=== PATIENT | female | born 1945 | race Caucasian/White ===

== ENCOUNTER 2017-07-20 08:22 | Inpatient (IN) | payer MEDICARE, MEDICAID ==
[2017-07-20 10:03] LABS: #Eosinphils 0.1 thou/uL (0.0-0.7); #Lymphocytes 0.9 thou/uL (1.20-3.40); #Monocytes 1.2 thou/uL (0.11-0.59); #Neutrophils 17.2 thou/uL (1.40-6.50); %Basophils 0.1 % (0.0-1.0); %Eosinophils 0.4 % (0.0-10.0); %Lymphocytes 4.8 % (21.0-51.0); %Monocytes 6.3 % (0.0-10.0); Hematocrit 36.1 % (36.0-47.0); Mean Platelet Volume 8.3 fL (7.4-10.4); Red Blood Cell (RBC) Count 3.86 mill/uL (4.20-5.40); White Blood Cell (WBC) Count 19.5 thou/uL (4.8-10.8)
[2017-07-20 10:25] LABS: Lactic Acid - Sepsis 2.1 mmol/L (0.5-2.2)
[2017-07-20 10:28] LABS: ALT (SGPT) 22 U/L (8-55); AST (SGOT) 20 U/L (5-34); Alkaline Phosphatase 123 U/L (40-150); Anion Gap 17 mmol/L (10-20); BUN (Urea Nitrogen) 34 mg/dL (9.8-20.1); Bilirubin, Total 0.3 mg/dL (0.2-1.2); CK (CPK) 59 U/L (29-168); Calc. Creatinine Clearance 0 mL/min (70-130); Calcium 8.8 mg/dL (7.8-10.44); Carbon Dioxide 25 mmol/L (23-31); Chloride 101 mmol/L (98-107); Estimated GFR-MDRD 28; Globulin 3.7 g/dL (2.4-3.5); Lipase 42 U/L (8-78); Protein, Total 7.6 g/dL (6.0-8.3)
--- NOTE | 2017-07-20 10:31 | CT ---
CT HEAD WITHOUT IV CONTRAST: DATE: 07/20/17. HISTORY: Twitching behavior. The patient has seizure-type behaviors. The patient fell in bathroom 2 days ag o. Generalized weakness. COMPARISON: 04/10/15. FINDINGS: Again noted are mild chronic small-vessel ischemic changes as well as cerebral volume loss. There i s a remote lacunar infarction again seen within the lateral aspect of each putamen near the external capsules bilaterally. There is no evidence of an acute cortical infarction, hemorrhage, mass effec t, or midline shift. Ventricular system is normal in size, shape, and position for the degree of hancock lcal atrophy. A mucous retention cyst is present in the right maxillary antrum. There is mucosal thickening in a few right ethmoidal air cells. The mastoid air cells are clear. No other interval change. IMPRESSION: 1. No acute intracranial abnormalities demonstrated. 2. Mild chronic small-vessel ischemic changes and cerebral volume loss. 3. Remote lacunar infarctions each basal ganglia. POS: [facility]
[2017-07-20 10:33] LABS: Troponin I Less than 0.010 ng/mL (< 0.028)
--- NOTE | 2017-07-20 10:48 | RAD ---
PORTABLE CHEST: Date: )07/20/17 HISTORY: Respiratory distress. COMPARISON: None. FINDINGS: Heart size appears slightly enlarged. There is an infiltrative appearing process along the left hear t border, probably lingular infiltrate. The right lung appears clear. There are chronic lung changes seen. IMPRESSION: 1. Left lung infiltrate. This is probably within the lingula. A lateral film would be helpful in as sessment. 2. Mild cardiomegaly. POS: [facility]
--- NOTE | 2017-07-20 10:48 | RAD ---
TWO VIEWS LEFT FOREARM: DATE: 07/20/17. HISTORY: The patient fell in bathroom 2 days ago and has skin tears to the left forearm. FINDINGS: There is minimal subcutaneous soft tissue irregularity seen at the lateral aspect of the mid forearm which may be related to a laceration in this region. No radiopaque foreign body is seen. No fract ure or dislocation is visualized. There is osteoarthritis involving the 1st carpometacarpal joint. IMPRESSION: 1. No acute fracture visualized involving the left forearm. 2. Minimal soft tissue irregularity and soft tissue swelling lateral aspect mid forearm which may b e related to laceration and associated soft tissue swelling. POS: [facility]
[2017-07-20 11:01] LABS: Bilirubin Negative (Negative); Blood, Urine Large (Negative); Glucose, Urine (Dipstick) Negative (Negative); Ketone, Urine Negative (Negative); Nitrite Positive (Negative); Protein, Urine (Dipstick) Negative (Neg-Trace); Urobilinogen 0.2 mg/dL (0.2-1.0)
[2017-07-20 11:10] LABS: Bacteria/HPF 3+ HPF (None Seen); Hyaline Casts/LPF NONE SEEN LPF (0-3 Hyaline); RBC/HPF 0-3 HPF (0-3); Squamous Epithelial 0-3 HPF (0-3); WBC/HPF None Seen HPF (0-3)
[2017-07-20] MEDS ORDERED: cefTRIAXone\\ROCEPHIN 1 GM VIAL ONE (11:36)
[2017-07-20] MEDS ORDERED: Piperacillin/Tazobactam 3.375 GM in Sodium Chloride 0.9% 100 ML IVPB SCH (11:45)
[2017-07-20] MEDS ORDERED: Acetaminophen 500 MG TAB ONE (12:48)
[2017-07-20 12:58] LABS: Troponin I Less than 0.010 ng/mL (< 0.028)
--- NOTE | 2017-07-20 12:58 | CT ---
CT OF ABDOMEN AND PELVIS PERFORMED WITHOUT CONTRAST ENHANCEMENT: Date: 07/20/17 HISTORY: Patient reports a fall in the bathroom 2 days ago. Generalized weakness. COMPARISON: CT of the chest performed 12/22/15. FINDINGS: There is a partially visualized lingular infiltrate seen. There is also some very minimal parenchyma l change in the right middle lobe. The liver shows no focal abnormalities. The gallbladder is mildly distended, but no pericholecystic inflammatory change. Splenosis of the spleen is again demonstrated. The pancreas region is unremarka ble. Right and left adrenal glands are normal in appearance. There is an exophytic hypodensity involving the mid to upper pole region of the left kidney, most likely a small cyst. No renal calculi are demo nstrated. There is no significant periaortic or mesenteric adenopathy. No signs of bowel obstruction . Some minimal diverticulosis noted. CT of pelvis was performed without contrast enhancement. Postoperative changes in the groin region a re noted. On the right side, there is what appears to be a partially visualized right fem-pop graft. The bladder is markedly distended. There is some air in the bladder, presumably related to catheter ization. No adenopathy or mass. Appendix is unremarkable. No periappendiceal inflammatory change. IMPRESSION: 1. Lingular infiltrate, also some minimal parenchymal change of the right middle lobe. 2. Distended bladder. 3. No acute abnormalities of the abdomen or pelvis. POS: [facility]
[2017-07-20] MEDS ORDERED: Dextrose 50% Abboject 50 ML SYRINGE SLOW IVP PRN (13:58)
[2017-07-20] MEDS ORDERED: Dextrose 5% in Water 1,000 ML IV PRN (13:58)
[2017-07-20] MEDS ORDERED: Ondansetron HCl/PF 4 MG/2 ML Vial IVP PRN (14:24)
[2017-07-20] MEDS ORDERED: Ondansetron ODT 4 MG TAB PO PRN (14:25)
[2017-07-20] MEDS ORDERED: Pregabalin 75 MG CAP PO SCH (15:00)
[2017-07-20] MEDS: Sodium Chloride 0.9% 1,000 ML IV SCH ×2 (15:10→17:14)
[2017-07-20] MEDS: Azithromycin 500 MG in Sodium Chloride 0.9% 250 ML 250 ML IVPB SCH (15:10)
--- NOTE | 2017-07-20 15:30 | HP-2 ---
CODE STATUS: FULL. PRIMARY CARE PHYSICIAN: Dr. Page at [facility] ATTENDING PHYSICIAN: Dr. Sundar Gonzalez. PGY1: Laura Mendez D.O. CHIEF COMPLAINT: Altered mental status. HISTORY OF PRESENT ILLNESS: This is a 72-year-old female with past medical history of chronic kidney disease stage II, hypertension, diabetes mellitus type 2, obstructive sleep apnea on CPAP and possible COPD that presented from [facility] with altered mental status. The patient's perez mate called EMS as she was not acting herself. Patient reportedly fell while trying to make her way to the restroom a couple of days ago. She was seen in clinic by Dr. Page at that time. Today, patient presented with altered mental status, hypoxia (87 % on room air), tachycardia, increased white blood cell count, acute on chronic kidney injury. She is unable to provide reliable history secondary to altered mental status. Primary care records were obtained from [facility] charts. Patient was given 2 liters normal saline in the ED and started on Rocephin, vancomycin and Zosyn. PAST MEDICAL HISTORY: 1. Diabetes mellitus type 2. 2. Hyperlipidemia. 3. Hypertension. 4. Diabetic peripheral neuropathy. 5. Migraine with aura. 6. Chronic kidney disease stage 2. 7. Obstructive sleep apnea on CPAP. 8. Recurrent major depressive disorder, mild. PAST SURGICAL HISTORY: 1. Tonsillectomy. 2. Total abdominal hysterectomy. 3. Carpal tunnel release bilaterally. 4. Rotator cuff repair. 5. Splenectomy. ALLERGIES: 1. DEMEROL. 2. IMITREX. 3. MORPHINE. MEDICATIONS: 1. Lyrica 75 mg capsule 3 times per day. 2. Atorvastatin calcium 40 mg oral at bedtime. 3. Celexa 40 mg oral every evening. 4. Coreg 6.25 mg b.i.d. 5. Janumet 50-1000 mg oral tablet b.i.d. 6. Glipizide 5 mg oral daily. 7. Lisinopril 2.5 mg oral daily. 8. Ferrous sulfate 325 mg oral b.i.d. 9. Pantoprazole 40 mg oral daily. 10. Potassium chloride extended release 10 mEq daily. 11. Docusate sodium 100 mg oral capsules b.i.d. p.r.n. 12. Tylenol with Codeine No. 3 one tablet every 4-6 hours as needed for pain. FAMILY HISTORY: 1. Maternal grandmother, diabetes mellitus type 2. 2. Mother, diabetes, stroke in 60s. 3. Father, diabetes mellitus and stroke. SOCIAL HISTORY: The patient is a past smoker. She smoked for about 40+ years and quit 11 years ago. She denies any recent alcohol or drug use. REVIEW OF SYSTEMS: Review of systems was difficult to obtain secondary to altered mental status; however, the patient was able to answer a few questions. She is able to say that she has a cough, mild amount of chest pain, increased frequency in urination, increased urgency in urination, and some dysuria with urination. She also has a bruise and some lacerations on her left hand that she attributes to falling 2 days ago. PHYSICAL EXAMINATION: VITAL SIGNS: Blood pressure 121/88, pulse 127, respiratory rate 22, T-max 102.3 , pulse ox 96% on 2 liters, current weight 90 kilograms. GENERAL: The patient is alert, she is oriented x3, did not appear to be in any acute distress; however, she would occasionally answer questions appropriately, was hard to get a real reliable history secondary to her mental status. She does appear well-developed and well-nourished. She is obese. EYES: Pupils equally round, reactive to light and accommodation. Extraocular muscles intact. Conjunctivae within normal limits. ENT: Tympanic membranes zhong without bulging or erythema. Nasal mucosa within normal limits. Oropharynx within normal limits. NECK: Supple. CARDIOVASCULAR: Patient is tachycardic without murmur or gallops. Radial and pedal pulses are both weak. RESPIRATORY: Normal respiratory effort. Decreased lung sounds throughout. Has wheezing diffusely. SKIN: Warm and dry. No cyanosis. She did have a large bruise on the forearm and laceration secondary to recent fall. ABDOMEN: Soft, nontender to palpation. Bowel sounds positive in all 4 quadrants. No masses or distention with some PE. EXTREMITIES: No clubbing or cyanosis. No edema. MUSCULOSKELETAL: Structure within normal limits. Tone within normal limits. Muscle strength 5/5. NEUROLOGIC: No focal deficits. PSYCHIATRIC: The patient appeared altered. She would answer questions inappropriately at times. LABORATORY DATA AND IMAGIN. CBC: White blood cell count 19.5, hemoglobin 11.7, hematocrit 36.1, platelets 301. 2. CMP: Sodium 138, potassium 4.8, chloride 101, bicarbonate 25, BUN 34, creatinine 1.77, glucose 1.95, calcium 8.8, protein 7.6, albumin 3.9, total bilirubin 0.3. ALT 20, AST 22, alkaline phosphatase 123. 3. CK 59. 4. CK-MB 1.1, troponin less than 0.010. 5. Lipase 42. 6. BNP 36.6. D-dimer 2.18. 7. Lactic acid 2.1. 8. UA; specific gravity 1.015, blood large, positive nitrite, 0-3 red blood cells, 3+ bacteria. 9. EKG: sinus tachycardia with PACs. 10. Chest x-ray: lingula infiltrate and mild cardiomegaly. 11. Abdomen and pelvis CT showed lingular infiltrate as well as distended bladder. 12. Left forearm x-ray, soft tissue swelling. 13. Brain CT, mild chronic small vessel ischemic changes and cerebral volume loss, remote lacunar infarcts bilaterally in the base lingula. 14. Influenza negative. ASSESSMENT AND PLAN: This is a 72-year-old female who presented with altered mental status. 1. Severe sepsis secondary to community-acquired pneumonia. The patient is being fluid resuscitated at 30 mL per kilogram. She will have received 3 liters of normal saline, 2 of which were given in the ED. Will start patient on IV fluids at 150 mL per hour. Zosyn, vancomycin and ceftriaxone were started in the ER. We will continue the patient on ceftriaxone and azithromycin for treatment of community acquired pneumonia. 2. Acute hypoxic respiratory failure secondary to pneumonia. We will monitor the patient's O2. The patient is currently on 2 liters. Will try to deescalate as appropriate. We will continue plan as above. 3. Acute on chronic kidney disease stage 2. Creatinine 1.77, BUN 34, baseline creatinine of 0.8. We will continue intravenous fluids and monitor kidney function with basic metabolic panel. 4. Elevated D-dimer. This is likely secondary to sepsis. We will consider V/ Q scan. 5. Nitrite positive urine. This could be a separate urinary infection or secondary to hematogenous spread from pneumonia. The patient is currently on ceftriaxone. We will continue to treat with ceftriaxone and monitor. Urine culture was sent. 6. Hypertension. Continue home medications when patient's blood pressure is stable. It does not look like patient currently needs to be on blood pressure. We will wait until sepsis resolves. 7. Diabetes mellitus type 2. Mild sliding scale insulin. We will continue the patient's home medications. 8. Hyperlipidemia. Continue home medications. 9. Obstructive sleep apnea on continuous positive airway pressure. We will order continuous positive airway pressure at night. DISPOSITION AND LENGTH OF HOSPITAL STAY: The patient admitted to [facility] with presumed length of hospital stay of 2 days. Symptomatic medication will be provided. History and physical exam as well as management discussed with Dr. Sundar Gonzalez. JERAD
[2017-07-20 16:16] LABS: Troponin I Less than 0.010 ng/mL (< 0.028)
[2017-07-20] MEDS ORDERED: Aspirin/APAP/Caffeine Tab (Excedrin Migraine) PO PRN (18:37)
--- NOTE | 2017-07-20 20:10 | HP ---
DATE OF CONSULTATION: 07/20/2017 DATE OF ADMISSION: 07/20/2017 CHIEF COMPLAINT: Confusion. HISTORY OF PRESENT ILLNESS: This is a 72-year-old female with past history of diabetes, morbid obesity, and peripheral vascular disease, presents with a 2- day history of acting abnormally at her long term which was [facility]. In the ER note, they mentioned some twitching and abnormal movements, but she cannot recall any of those to me. She only tells me that she has been feeling weak and not well for a few days. She has told one of the resident that she had dysuria, urgency, fever, and chills, but she tells me she does not have any urinary symptoms right now. She also denies any cough or congestion. Currently in the ED, she was found to be tachycardic and hypoxic and was diagnosed with a lingular pneumonia, complicated UTI, and subsequently admitted to our service after being given vancomycin, Zosyn, and a NS bolus. Currently, she says she is still feeling quite bad with malaise all over, but again says that she does not have any dysuria, urgency, or cough. REVIEW OF SYSTEMS: General: Positive for malaise, fever, and chills. Eyes: Without decreased visual acuity or eye pain. ENT: Without ear pain or sore throat. Cardiovascular: Without chest pain. Does endorse some shortness of breath at this time. Respiratory: Denies cough or hemoptysis. Gastrointestinal: Denies nausea, vomiting, or diarrhea. She does have black stools, says these are longstanding and that her doctor told her it was because of medication she has been given. Genitourinary: See HPI. Neurologic: Denies numbness or weakness anywhere. No abnormal movements per patient. Psychiatric: Denies depression or anxiety at this time. Hematologic: Positive for easy bruising, but no active bleeding. Integument/skin: Denies rash. She does have a wound to her left upper extremity from which she fell 2 days ago. PAST MEDICAL HISTORY: Significant for diabetes mellitus type 2, essential hypertension, hyperlipidemia, anemia, CKD stage 2. FAMILY HISTORY: Noncontributory. MEDICATIONS: She cannot remember. SOCIAL HISTORY: She denies tobacco, ethanol, or drug use currently. PAST SURGICAL HISTORY: Positive for abdominal surgery, but she cannot remember what it was. PHYSICAL EXAMINATION: VITAL SIGNS: Most recently, temperature 99.0, pulse 131, respirations 24, O2 sat 98% on 2% room air, blood pressure 117/71. GENERAL: She is ill-appearing, in mild distress. EYES: Without icterus or injection. ENT: Dry mucous membranes. Pinna and nares are patent. NECK: Trachea midline and mobile. CARDIOVASCULAR: Tachycardic, regular, without murmur. Warm extremities. RESPIRATORY: She is slightly tachypneic with no prominent retractions. She has no inspiratory crackles in the left side at the mid axillary line anteriorly. GASTROINTESTINAL: Bowel sounds positive. Nontender to palpation. GENITOURINARY: Currently has a diaper. Has right-sided CVA tenderness that is mild. MUSCULOSKELETAL: Without deformity or contracture. SKIN: She has multiple ecchymoses on left arm with some scabs presumably from a fall a couple of days ago. NEUROLOGIC: She moves all extremities. Sensation is intact to light touch throughout all and that she has symmetric facies. PSYCHIATRIC: She is alert and oriented x2, is somewhat confused. LABORATORY DATA: Positive for white count 19.5 with 88% neutrophils, hemoglobin 11.7, platelets of 301. Coags she had D-dimer in the ED, which was 2.18. CMP with sodium 138, potassium of 4.8, chloride 101, carbon dioxide 25, BUN 34, creatinine 1.77, glucose 195, calcium 8.8, lactic acid of 2.1, total bilirubin 0.3, AST and ALT of 20 and 22, respectively, alkaline phosphatase is 123, creatine kinase 59, troponin less than 0.01, lipase of 42. Urine positive for large blood and nitrites. IMAGING: She had a CT of the head demonstrated no acute intracranial abnormalities, but she did have mild chronic small vessel ischemic changes and cerebral volume loss and remote lacunar infarctions of each basal ganglia. Abdominal CT was positive for partially visualized lingular infiltrate, normal liver, mildly distended gallbladder without surrounding changes, what appeared to be a small cyst in the mid upper pole of the left kidney. Chest x-ray demonstrated left lung infiltrate and mild cardiomegaly. Forearm x-ray of the left side revealed no fracture, some swelling of the soft tissues. ASSESSMENT AND PLAN: A 72-year-old female with: 1. Severe sepsis secondary to presumed lingular pneumonia and suspected urinary tract infection. We will start Rocephin and azithromycin. She has no recent history of antibiotic use. We will give her another bolus. Monitor heart rate closely in the ICU, place Henry catheter for strict I's and O's. Draw blood cultures and urine culture and obtain CT of her cardiomegaly. 2. Cardiomegaly. We will obtain transthoracic echocardiogram. 3. Hypertension. We will hold all hypertensive medications at this time. 4. Diabetes. We will hold oral agents. Begin sliding scale insulin. 5. Elevated D-dimer. Suspect this is due to sepsis, we may consider further workup. 6. Hyperlipidemia. We will continue statin. 7. Acute kidney injury on presumed chronic kidney disease. We will obtain urine studies and trend. 8. Acute respiratory failure with hypoxia. We will supplement O2 until O2 sat is greater than 90% and monitor deep venous thrombosis prophylaxis with Lovenox and gastrointestinal prophylaxis with diet for now. MTDD
[2017-07-20] MEDS ORDERED: Carvedilol 6.25 MG TAB PO SCH (21:00)
[2017-07-20] MEDS: Acetaminophen/Codeine 30-300mg Tablet PO PRN (21:14)
[2017-07-20] MEDS: Amitriptyline HCl 100 MG TAB PO SCH (21:14)
[2017-07-21] MEDS: cefTRIAXone\\ROCEPHIN 2 GM in Sodium Chloride 0.9% 100 ML IVPB SCH ×2 (00:23→23:35)
[2017-07-21] MEDS: Sodium Chloride 0.9% 1,000 ML IV SCH ×3 (00:26→17:08)
[2017-07-21] MEDS: Acetaminophen/Codeine 30-300mg Tablet PO PRN (03:10)
[2017-07-21 04:49] LABS: Anion Gap 10 mmol/L (10-20); BUN (Urea Nitrogen) 18 mg/dL (9.8-20.1); Calc. Creatinine Clearance 67 mL/min (70-130); Carbon Dioxide 25 mmol/L (23-31); Chloride 107 mmol/L (98-107); Estimated GFR-MDRD 47
[2017-07-21 05:29] LABS: Band 4 % (5-11); Hematocrit 30.6 % (36.0-47.0); Mean Platelet Volume 8.3 fL (7.4-10.4); Neutrophil 78 % (42-75); Red Blood Cell (RBC) Count 3.23 mill/uL (4.20-5.40); White Blood Cell (WBC) Count 21.1 thou/uL (4.8-10.8)
[2017-07-21] MEDS ORDERED: Acetaminophen/Codeine 30-300mg Tablet PO PRN (07:18)
--- NOTE | 2017-07-21 07:23 | PDOC.FM ---
- Subjective Subjective: Patient states she is feeling better today. She does note that her cough is worse than yesterday. She no longer has the frequency, urgency, or dysuria, but she does have a cody in place. She states she feels weak. She also states she has a migraine currently. She has no other complaints at this time. - Objective Vital Signs & Weight: Vital Signs (12 hours) Temp Pulse Resp BP Pulse Ox 07/21/17 07:07 97 07/21/17 07:02 105 H 28 H 97 07/21/17 06:15 99.2 F 119 H 18 127/60 97 07/21/17 02:44 108 H 16 98 07/21/17 00:32 98.9 F 95 18 113/54 L 97 07/21/17 00:20 98.9 F 100 18 113/54 L 97 07/20/17 22:11 96 16 99 07/20/17 20:00 100.0 F H 107 H 18 117/56 L 100 Weight Weight 92.578 kg I&O: 07/20/17 07/21/17 07/22/17 06:59 06:59 06:59 Intake Total 1288 Output Total 3175 Balance -1886 Result Diagrams: 07/21/17 03:50 07/21/17 03:50 <Saturnino Barnes - Last Filed: 07/21/17 07:30> - Objective Vital Signs & Weight: Vital Signs (12 hours) Temp Pulse Resp BP Pulse Ox 07/21/17 08:00 98.7 F 118 H 20 157/69 H 93 L 07/21/17 07:07 97 07/21/17 07:02 105 H 28 H 97 07/21/17 06:15 99.2 F 119 H 18 127/60 97 07/21/17 02:44 108 H 16 98 07/21/17 00:32 98.9 F 95 18 113/54 L 97 07/21/17 00:20 98.9 F 100 18 113/54 L 97 07/20/17 22:11 96 16 99 Weight Weight 92.578 kg I&O: 07/20/17 07/21/17 07/22/17 06:59 06:59 06:59 Intake Total 1288 Output Total 1905 Balance -1887 Result Diagrams: 07/21/17 03:50 07/21/17 03:50 <LudwinChel ballesteros - Last Filed: 07/21/17 09:57> Phys Exam - Physical Examination HEENT: PERRLA, moist MMs Respiratory: wheezing present crackles bilaterally at the bases Cardiovascular: no significant murmur Tachycardia, regular rhythm. Gastrointestinal: soft, non-tender, no distention, positive bowel sounds obese Musculoskeletal: no edema, pulses present Neurological: non-focal, normal sensation, moves all 4 limbs Psychiatric: normal affect, A&O x 3 Skin: no rash Deviation from normal: skin tears on left arm. <Saturnino Barnes - Last Filed: 07/21/17 07:30> Dx/Plan (1) Sepsis due to urinary tract infection Code(s): A41.9 - SEPSIS, UNSPECIFIED ORGANISM; N39.0 - URINARY TRACT INFECTION, SITE NOT SPECIFIED Status: Acute Plan: -Possibly due to UTI or CAP, will cover for both. -s/p 4L NS bolus -IVF 150mls/hr -Ceftriaxone 07/20 and Azithromycin 07/20 -WBC 12.1, will monitor with CBC -Urine and blood cultures pending. (2) Acute respiratory failure with hypoxia Code(s): J96.01 - ACUTE RESPIRATORY FAILURE WITH HYPOXIA Status: Acute Plan: -Still requiring 3L O2 via nasal cannula -Baseline is no oxygen -Continue to titrate O2 to above 92% -Crackles and wheezes present -Continue Duonebs (3) UTI (urinary tract infection) Status: Acute Qualifiers: Urinary tract infection type: acute cystitis Hematuria presence: without hematuria Qualified Code(s): N30.00 - Acute cystitis without hematuria Plan: -Urine culture pending -Continue antibiotics (4) CKD stage 2 due to type 2 diabetes mellitus Code(s): E11.22 - TYPE 2 DIABETES MELLITUS W DIABETIC CHRONIC KIDNEY DISEASE; N18.2 - CHRONIC KIDNEY DISEASE, STAGE 2 (MILD) Status: Chronic Plan: -Continue to Monitor -IVF (5) Hypertension, benign Code(s): I10 - ESSENTIAL (PRIMARY) HYPERTENSION Status: Chronic Plan: Hold home BP meds (6) Migraine headache Code(s): G43.909 - MIGRAINE, UNSP, NOT INTRACTABLE, WITHOUT STATUS MIGRAINOSUS Status: Chronic Plan: -Tylenol #3 which she takes at home for migraines (7) Acute kidney injury Code(s): N17.9 - ACUTE KIDNEY FAILURE, UNSPECIFIED Status: Acute Plan: -Cr on admission was 1.77 -Down to 1.14 today. -Continue to monitor urine output and BMP -Continue IVF (8) Cardiomegaly Code(s): I51.7 - CARDIOMEGALY Status: Acute Plan: ECHO pending (9) Hyperlipidemia Code(s): E78.5 - HYPERLIPIDEMIA, UNSPECIFIED Status: Chronic Plan: Continue statin - Plan Plan: Will discuss moving patient from IMCU to floor today. Continue current therapy. Will make appropriate changes with further test results and status of the patient. <Saturnino Barnes - Last Filed: 07/21/17 07:30> Attending Addendum - Attending Addendum I personally evaluated the patient and discussed the management with Dr. Barnes. I agree with the History, Examination, Assessment and Plan documented above with any addition or exceptions noted below. The patient's WBC increased from 19 to 21. Temp 99 overnight. She notes she is feeling a little better. She does endorse cough. The patient remains tachycardic and hypoxic requiring O2. She had an elevated d-dimer that could be due to her pneumonia but PE is not ruled out. Acute kidney injury is improved and will see if Creatinine is low enough for CTA chest. Continue IV antibiotics. Echo today. Will give lasix as needed. <Chel Mascorro - Last Filed: 07/21/17 09:57>
[2017-07-21] MEDS: Aspirin 81 mg Enteric Coated Tablet PO SCH (08:47)
[2017-07-21] MEDS: Enoxaparin Sodium 40 MG/0.4 ML SYRINGE SC SCH (08:47)
[2017-07-21] MEDS: Famotidine/PF 20 mg/2ml Vial SLOW IVP SCH (08:47)
[2017-07-21] MEDS: Pregabalin 75 MG CAP PO SCH ×3 (08:47→19:35)
[2017-07-21] MEDS: Atorvastatin Calcium 40 MG TAB PO SCH (08:48)
[2017-07-21] MEDS ORDERED: glipiZIDE 5 MG TAB PO SCH (09:00)
[2017-07-21] MEDS ORDERED: Ondansetron HCl/PF 4 MG/2 ML Vial IVP PRN (09:13)
[2017-07-21] MEDS: HumaLOG 300 UNITS/3 ML VIAL SC PRN ×2 (11:41→17:16)
[2017-07-21] MEDS: Azithromycin 500 MG in Sodium Chloride 0.9% 250 ML 250 ML IVPB SCH (15:15)
--- NOTE | 2017-07-21 15:54 | CT ---
CTA THORAX WITH CONTRAST: 07/21/17, 2:47 p.m. (Computed Tomographic Angiography, chest(noncoronary) with contrast material, and image postprocessi ng) (PE protocol) HISTORY: 72-year-old female with chest pain and dyspnea. Rule out pulmonary embolism. COMPARISON: 12/22/15 TECHNIQUE: IV injection of iodinated contrast: Isovue Scan acquisition timing attempted to coincide with iodinated contrast bolus reaching maximal density in pulmonary arteries. 3D MIP reconstructions. FINDINGS: There is a new finding of a region of consolidation involving what could either be the superior segm ent of the left lower lobe or the posterior segment of left upper lobe. This is contiguous with infi ltrates throughout much of the left upper lobe, including posterior segment and apical segment. The consolidation at least in part represents atelectasis as represented by volume loss, and severe narr owing of involved bronchi within the consolidation, with air bronchogram. There are new bilateral sm all pleural effusions, left greater than right. Mild passive atelectasis at the posterior inferior b ases of the bilateral lower lobes. No thoracic aortic aneurysm or dissection. No pulmonary thromboem bolism identified. Diffusely low hepatic attenuation representing fatty liver. Mild cardiomegaly. In place of a normal spleen, there is a large number of lobulated solid masses in the left upper quadr ant of the abdomen just inferior to the left hemidiaphragm. This appearance has not changed since , and these probably represent multiple spleen fragments, perhaps from previous trauma or surge ry. IMPRESSION: 1. No pulmonary thromboembolism. 2. Moderate sized region of consolidation in the left lung, which may represent combination ate lectasis and pneumonia. There is severe, irregular bronchial narrowing within this consolidation. 3. Mixed interstitial and alveolar infiltrates throughout much of the left upper lobe: evidence for pneumonia. 4. Small bilateral pleural effusions. 5. A large number of solid masses in the left upper quadrant of the abdomen, probably represent ing fragmented spleen. 6. Hepatic steatosis. jackie[] POS: [facility]
[2017-07-21] MEDS ORDERED: ISOVUE-370 76%-LOCM 1 ML ONE (16:47)
[2017-07-21] MEDS: Acetaminophen 325 MG TAB PO PRN (19:33)
[2017-07-21] MEDS: Amitriptyline HCl 100 MG TAB PO SCH (19:36)
[2017-07-21] MEDS ORDERED: Furosemide 40 MG/4 ML VIAL SLOW IVP SCH (20:45)
[2017-07-21] MEDS ORDERED: methylPREDNISolone Sod Succ/PF 125 MG/2 ML VIAL IVP SCH (20:45)
[2017-07-21 21:18] LABS: Troponin I 0.028 ng/mL (< 0.028)
[2017-07-22] MEDS: HumaLOG 300 UNITS/3 ML VIAL SC PRN ×3 (05:30→15:45)
[2017-07-22] MEDS: Albuterol Sulfate 2.5 mg/3 ml Neb NEB SCH ×3 (07:04→18:47)
--- NOTE | 2017-07-22 07:21 | PDOC.FM ---
- Subjective Subjective: Patient states she had a good night. She is feeling better today. She does still admit to cough and the urge to pee, but she has a cody catheter in place. She states she had trouble with the hospital CPAP machine last night because it doesn't fit like hers does at home. - Objective Vital Signs & Weight: Vital Signs (12 hours) Temp Pulse Resp BP Pulse Ox 07/22/17 07:03 97 07/22/17 06:59 124 H 20 97 07/22/17 04:00 98.8 F 109 H 20 162/84 H 95 07/22/17 02:25 109 H 20 99 07/22/17 00:00 92 L 07/21/17 23:39 98.6 F 112 H 24 H 110/60 90 L 07/21/17 22:09 130 H 20 96 07/21/17 22:00 123 H 24 H 139/67 93 L 07/21/17 20:55 99.0 F 135 H 28 H 145/73 H 95 07/21/17 20:00 99.4 F 128 H 22 H 96 07/21/17 19:40 99.4 F 128 H 22 H 181/84 H 96 Weight Weight 92.533 kg I&O: 07/21/17 07/22/17 07/23/17 06:59 06:59 06:59 Intake Total 1282 2728 Output Total 6709 3900 Balance -9204 -9202 Result Diagrams: 07/21/17 03:50 07/21/17 03:50 <Saturnino Barnes - Last Filed: 07/22/17 07:19> - Objective Vital Signs & Weight: Vital Signs (12 hours) Temp Pulse Resp BP Pulse Ox 07/22/17 12:16 105 H 24 H 94 L 07/22/17 11:15 98.2 F 110 H 22 H 101/75 95 07/22/17 07:30 98.4 F 107 H 22 H 118/59 L 94 L 07/22/17 07:03 97 07/22/17 06:59 124 H 20 97 07/22/17 04:00 98.8 F 109 H 20 162/84 H 95 Weight Weight 92.533 kg I&O: 07/21/17 07/22/17 07/23/17 06:59 06:59 06:59 Intake Total 3531 2720 Output Total 7827 3978 Balance -6234 -9383 Result Diagrams: 07/22/17 07:02 07/22/17 07:02 <Chel Mascorro - Last Filed: 07/22/17 14:31> Phys Exam - Physical Examination HEENT: PERRLA, moist MMs Neck: no nodes, supple Respiratory: wheezing present, clear to auscultation bilateral Cardiovascular: RRR, no significant murmur Gastrointestinal: soft, non-tender, no distention, positive bowel sounds Musculoskeletal: no edema, pulses present Neurological: non-focal, normal sensation, moves all 4 limbs Psychiatric: normal affect, A&O x 3 Skin: no rash <Saturnino Barnes - Last Filed: 07/22/17 07:19> Dx/Plan (1) Sepsis due to urinary tract infection Code(s): A41.9 - SEPSIS, UNSPECIFIED ORGANISM; N39.0 - URINARY TRACT INFECTION, SITE NOT SPECIFIED Status: Acute Plan: -Possibly due to UTI or CAP, will cover for both. -s/p 4L NS bolus -IVF 150mls/hr -Ceftriaxone 07/20 and Azithromycin 07/20 -Urine culture grew E. coli sensitive to Ceftriaxone. -Blood culture no growth to date. -Continue current therapy (2) Acute respiratory failure with hypoxia Code(s): J96.01 - ACUTE RESPIRATORY FAILURE WITH HYPOXIA Status: Acute Plan: -Still requiring 3L O2 via nasal cannula -Baseline is no oxygen -Continue to titrate O2 to above 92% -Crackles and wheezes present -Continue Duonebs -Continue CPAP machine -If evidence of fluid overload will give Lasix as needed. (3) UTI (urinary tract infection) Status: Acute Qualifiers: Urinary tract infection type: acute cystitis Hematuria presence: without hematuria Qualified Code(s): N30.00 - Acute cystitis without hematuria Plan: -Urine culture positive for E. coli -Continue antibiotics (4) CKD stage 2 due to type 2 diabetes mellitus Code(s): E11.22 - TYPE 2 DIABETES MELLITUS W DIABETIC CHRONIC KIDNEY DISEASE; N18.2 - CHRONIC KIDNEY DISEASE, STAGE 2 (MILD) Status: Chronic Plan: -Continue to Monitor -IVF (5) Hypertension, benign Code(s): I10 - ESSENTIAL (PRIMARY) HYPERTENSION Status: Chronic Plan: Hold home BP meds (6) Migraine headache Code(s): G43.909 - MIGRAINE, UNSP, NOT INTRACTABLE, WITHOUT STATUS MIGRAINOSUS Status: Chronic Plan: -Tylenol #3 which she takes at home for migraines (7) Acute kidney injury Code(s): N17.9 - ACUTE KIDNEY FAILURE, UNSPECIFIED Status: Acute Plan: -Cr on admission was 1.77 -Down to 1.14 today. -Continue to monitor urine output and BMP -Continue IVF (8) Cardiomegaly Code(s): I51.7 - CARDIOMEGALY Status: Acute Plan: ECHO pending (9) Hyperlipidemia Code(s): E78.5 - HYPERLIPIDEMIA, UNSPECIFIED Status: Chronic Plan: Continue statin - Plan Plan: Continue current therapy. <Saturnino Barnes - Last Filed: 07/22/17 07:19> Attending Addendum - Attending Addendum I personally evaluated the patient and discussed the management with Dr. Barnes. I agree with the History, Examination, Assessment and Plan documented above with any addition or exceptions noted below. The patient had an episode of respiratory distress overnight. She was given IV lasix and steroids. She was able to diurese almost 2 liters of fluid and is breathing better. CTA was negative for PE. Continue antibiotics for pneumonia and UTI. Continue steroids and nebs. Lasix as needed. May be able to transfer to the floor this afternoon. Wean O2. <Chel Mascorro - Last Filed: 07/22/17 14:31>
[2017-07-22 07:29] LABS: #Lymphocytes 0.9 thou/uL (1.20-3.40); #Monocytes 0.3 thou/uL (0.11-0.59); %Eosinophils 0.2 % (0.0-10.0); %Lymphocytes 5.6 % (21.0-51.0); Hematocrit 31.8 % (36.0-47.0); Mean Platelet Volume 9.1 fL (7.4-10.4); Red Blood Cell (RBC) Count 3.37 mill/uL (4.20-5.40); White Blood Cell (WBC) Count 16.3 thou/uL (4.8-10.8)
[2017-07-22 07:47] LABS: Anion Gap 13 mmol/L (10-20); BUN (Urea Nitrogen) 12 mg/dL (9.8-20.1); Calc. Creatinine Clearance 68 mL/min (70-130); Carbon Dioxide 25 mmol/L (23-31); Chloride 107 mmol/L (98-107); Estimated GFR-MDRD 48
[2017-07-22] MEDS: Pregabalin 75 MG CAP PO SCH ×3 (08:41→20:45)
[2017-07-22] MEDS: predniSONE 20 MG TAB PO SCH (08:41)
[2017-07-22] MEDS: Atorvastatin Calcium 40 MG TAB PO SCH (08:41)
[2017-07-22] MEDS: Aspirin 81 mg Enteric Coated Tablet PO SCH (08:41)
[2017-07-22] MEDS: Famotidine/PF 20 mg/2ml Vial SLOW IVP SCH (08:42)
[2017-07-22] MEDS: Enoxaparin Sodium 40 MG/0.4 ML SYRINGE SC SCH (08:43)
[2017-07-22] MEDS: Acetaminophen/Codeine 30-300mg Tablet PO PRN ×2 (08:48→15:08)
--- NOTE | 2017-07-22 10:40 | CON ---
DATE OF CONSULTATION: 07/22/2017 [facility] consultation for extended stay. HISTORY OF PRESENT ILLNESS: This is a 72-year-old female, who was brought in with confusion several days ago. She is having a COPD exacerbation. She has improved to the point where she is ready to transfer out of the IM. PAST MEDICAL HISTORY: 1. Diabetes mellitus. 2. Chronic obstructive pulmonary disease. 3. Hypertension. 4. Hyperlipidemia. 5. Chronic kidney disease, stage 2. PAST SURGICAL HISTORY: Abdominal surgery. SOCIAL HISTORY: Quit smoking 8 years ago. Does not consume alcohol. MEDICATIONS PRIOR TO ADMISSION: Acetaminophen, atorvastatin, potassium chloride, lisinopril, furose mide, Janumet, Glucotrol, Norvasc, Lyrica, Protonix, iron sulfate, Celexa, Coreg, aspirin, amitripty line. She is also on albuterol and ipratropium. CURRENT INPATIENT MEDICATIONS: Reviewed. See chart. ALLERGIES: MEPERIDINE, MORPHINE, [place]AN. REVIEW OF SYSTEMS: Otherwise, negative. PHYSICAL EXAMINATION: VITAL SIGNS: Temperature 98.4, pulse 107, respirations 22, O2 sat 94%, blood pressure 118/59. HEENT: Unremarkable. NECK: No JVD. LUNGS: Clear without wheezing. CARDIAC: S1, S2 regular. ABDOMEN: Soft. EXTREMITIES: No edema. IMAGING: CT of the chest obtained on 07/21 demonstrated no thromboembolism. She had some consolida tion in the left lung that was either atelectasis or pneumonia, mild interstitial infiltrates. ASSESSMENT: 1. Chronic obstructive pulmonary disease exacerbation. 2. Left lower lobe pneumonia. 3. Status post respiratory failure. PLAN: She no longer meets IMCU criteria. She can be transferred to the floor. She should continue steroids and antibiotics.
[2017-07-22] MEDS ORDERED: FLU VACC TS2017-18 (>65YR) 0.5 ML SYRINGE IM ONE (12:00)
[2017-07-22] MEDS: Azithromycin 500 MG in Sodium Chloride 0.9% 250 ML 250 ML IVPB SCH (14:58)
[2017-07-22] MEDS: Amitriptyline HCl 100 MG TAB PO SCH (20:44)
[2017-07-22] MEDS: Acetaminophen 325 MG TAB PO PRN (20:46)
[2017-07-23] MEDS: cefTRIAXone\\ROCEPHIN 2 GM in Sodium Chloride 0.9% 100 ML IVPB SCH ×2 (00:41→23:48)
[2017-07-23 06:32] LABS: Anion Gap 12 mmol/L (10-20); BUN (Urea Nitrogen) 20 mg/dL (9.8-20.1); Calc. Creatinine Clearance 66 mL/min (70-130); Carbon Dioxide 27 mmol/L (23-31); Chloride 106 mmol/L (98-107); Estimated GFR-MDRD 46
[2017-07-23 06:33] LABS: Calcium 9.4 mg/dL (7.8-10.44)
[2017-07-23 06:39] LABS: Band 5 % (5-11); Hematocrit 32.6 % (36.0-47.0); Mean Platelet Volume 9.4 fL (7.4-10.4); Neutrophil 83 % (42-75); Red Blood Cell (RBC) Count 3.43 mill/uL (4.20-5.40); White Blood Cell (WBC) Count 20.1 thou/uL (4.8-10.8)
--- NOTE | 2017-07-23 06:53 | PDOC.FM ---
- Subjective Subjective: Patient had a good night. States she is feeling better. She was transferred out of [facility] because of improvement of her condition. She states that she really needs to go home by tomorrow to pay her bills for July. She denies chest pain , sob, n/v/d. She states she hasn't had a BM, but is passing a lot of gas. Her breathing is not labored and her tachycardia has resolved. - Objective Vital Signs & Weight: Vital Signs (12 hours) Temp Pulse Resp BP Pulse Ox 07/23/17 03:34 97.3 F L 79 14 136/67 96 07/23/17 03:16 97 07/23/17 03:15 97 07/22/17 19:25 96 07/22/17 19:15 97.6 F 108 H 20 130/67 96 Weight Weight 92.896 kg I&O: 07/21/17 07/22/17 07/23/17 06:59 06:59 06:59 Intake Total 1288 2720 1100 Output Total 3175 5475 1275 [employer]1329 -7860 -175 Result Diagrams: 07/23/17 05:20 07/23/17 05:20 <Saturnino Barnes - Last Filed: 07/23/17 09:43> - Objective Vital Signs & Weight: Vital Signs (12 hours) Temp Pulse Resp BP Pulse Ox 07/23/17 08:00 98.9 F 120 H 22 H 139/64 92 L 07/23/17 06:39 101 H 18 95 07/23/17 03:34 97.3 F L 79 14 136/67 96 07/23/17 03:16 97 07/23/17 03:15 97 Weight Weight 92.896 kg I&O: 07/22/17 07/23/17 07/24/17 06:59 06:59 06:59 Intake Total 2720 1100 Output Total 5475 1275 Balance -8383 -346 Result Diagrams: 07/23/17 05:20 07/23/17 05:20 <Raza Vargas - Last Filed: 07/23/17 12:26> Phys Exam - Physical Examination HEENT: PERRLA, moist MMs Neck: no nodes, supple Respiratory: wheezing present, clear to auscultation bilateral Cardiovascular: RRR, no significant murmur Gastrointestinal: soft, non-tender, no distention, positive bowel sounds Musculoskeletal: no edema, pulses present Neurological: non-focal, normal sensation Psychiatric: A&O x 3 Skin: no rash <Saturnino Barnes - Last Filed: 07/23/17 09:43> Dx/Plan (1) Sepsis due to urinary tract infection Code(s): A41.9 - SEPSIS, UNSPECIFIED ORGANISM; N39.0 - URINARY TRACT INFECTION, SITE NOT SPECIFIED Status: Acute Plan: -Possibly due to UTI or CAP, will cover for both. -s/p 4L NS bolus -Ceftriaxone 07/20 and Azithromycin 07/20 -Urine culture grew E. coli sensitive to Ceftriaxone. -Blood culture no growth to date. -Improved -Continue current therapy (2) Acute respiratory failure with hypoxia Code(s): J96.01 - ACUTE RESPIRATORY FAILURE WITH HYPOXIA Status: Acute Plan: -Still requiring 3L O2 via nasal cannula -Baseline is no oxygen -Continue to titrate O2 to above 92% -Crackles and wheezes present -Continue Duonebs -Continue CPAP machine -Likely COPD exacerbation with pneumonia -Continue Antibiotics -Prednisone -If evidence of fluid overload will give Lasix as needed. (3) UTI (urinary tract infection) Status: Acute Qualifiers: Urinary tract infection type: acute cystitis Hematuria presence: without hematuria Qualified Code(s): N30.00 - Acute cystitis without hematuria Plan: -Urine culture positive for E. coli -Continue antibiotics (4) CKD stage 2 due to type 2 diabetes mellitus Code(s): E11.22 - TYPE 2 DIABETES MELLITUS W DIABETIC CHRONIC KIDNEY DISEASE; N18.2 - CHRONIC KIDNEY DISEASE, STAGE 2 (MILD) Status: Chronic Plan: -Continue to Monitor -Improved from admission (5) Hypertension, benign Code(s): I10 - ESSENTIAL (PRIMARY) HYPERTENSION Status: Chronic Plan: Hold home BP meds (6) Migraine headache Code(s): G43.909 - MIGRAINE, UNSP, NOT INTRACTABLE, WITHOUT STATUS MIGRAINOSUS Status: Chronic Plan: -Tylenol #3 which she takes at home for migraines (7) Acute kidney injury Code(s): N17.9 - ACUTE KIDNEY FAILURE, UNSPECIFIED Status: Acute Plan: -Cr on admission was 1.77 -Down to 1.17 today. -Continue to monitor urine output and BMP (8) Cardiomegaly Code(s): I51.7 - CARDIOMEGALY Status: Acute Plan: ECHO results normal (9) Hyperlipidemia Code(s): E78.5 - HYPERLIPIDEMIA, UNSPECIFIED Status: Chronic Plan: Continue statin - Plan Plan: Patient is improving. Will consider patient for discharge in near future. <Saturnino Barnes - Last Filed: 07/23/17 09:43> Attending Addendum - Attending Addendum I personally evaluated the patient and discussed the management with Dr. Barnes and Dr. Maldonado. I agree with the History, Examination, Assessment and Plan documented above with any addition or exceptions noted below. Afebrile, V/S stable. Feels a little SOB without oxygen on per NC. SaO2 74% by pulse oximetry during my exam, but she does not want to wear it. Bibasilar rales, coarse diffuse rhonchi. Will get room air ABG and PA/Lat CXR today. Continue IV abx for CAPneumonia. [facility] <Raza Vargas - Last Filed: 07/23/17 12:26>
[2017-07-23] MEDS: Aspirin 81 mg Enteric Coated Tablet PO SCH (10:22)
[2017-07-23] MEDS: Famotidine/PF 20 mg/2ml Vial SLOW IVP SCH (10:22)
[2017-07-23] MEDS: HumaLOG 300 UNITS/3 ML VIAL SC PRN ×3 (10:23→21:17)
[2017-07-23] MEDS: Atorvastatin Calcium 40 MG TAB PO SCH (10:24)
[2017-07-23] MEDS: Pregabalin 75 MG CAP PO SCH ×3 (10:24→21:17)
[2017-07-23] MEDS: Enoxaparin Sodium 40 MG/0.4 ML SYRINGE SC SCH (10:26)
[2017-07-23] MEDS: predniSONE 20 MG TAB PO SCH (10:26)
--- NOTE | 2017-07-23 10:28 | PRG ---
DATE OF SERVICE: 07/23/2017 SUBJECTIVE: The patient feels better. She wants to go home. PHYSICAL EXAMINATION: VITAL SIGNS: Temperature 97.3, pulse 101, respirations 18, sats 95% on 2 liters. HEENT: Unremarkable. NECK: No JVD. CHEST: Fairly clear. CARDIAC: S1 and S2 regular. ABDOMEN: Soft. EXTREMITIES: No edema. LABORATORY DATA: White blood cell count 10, hematocrit 32, platelet count 276. Sodium 141, potassi um 4.3, chloride 106, CO2 27, BUN 20, creatinine 1.2, glucose 236. ASSESSMENT: Chronic obstructive pulmonary disease exacerbation and left lower lobe pneumonia. RECOMMENDATIONS: I would go ahead and transition her over to oral antibiotics. I would decrease he r steroid dose as I think she is probably having some leukocytosis from the steroids. Her clinical picture does not indicate deterioration of the pneumonia. She should be able to go home in a day or two.
--- NOTE | 2017-07-23 10:53 | RAD ---
CHEST 2 VIEWS: Date: 07/23/17 HISTORY: Pneumonia. Follow-up. COMPARISON: 07/20/17. FINDINGS: Cardiac silhouette is enlarged and partially obscured by worsening bibasilar infiltrates. Pulmonary vasculature is slightly engorged. Small bilateral pleural fluid is evident. Mediastinum remains midl ine with aortic calcification. No evidence of pneumothorax. cardiac monitor leads overlie the chest. IMPRESSION: Worsening bibasilar infiltrates with small bilateral pleural effusions. POS: [facility]
[2017-07-23 10:55] LABS: Oxyhemoglobin 91.9 % (94.0-97.0); Sodium 144 mmol/L (135-148)
[2017-07-23 10:57] LABS: Mode NC; Modified Allen's Test POSITIVE; Vent NO
[2017-07-23] MEDS: Acetaminophen 325 MG TAB PO PRN (11:43)
[2017-07-23] MEDS ORDERED: predniSONE 20 MG TAB PO SCH (14:52)
[2017-07-23] MEDS: Azithromycin 500 MG in Sodium Chloride 0.9% 250 ML 250 ML IVPB SCH (16:01)
[2017-07-23] MEDS: Amitriptyline HCl 100 MG TAB PO SCH (21:18)
[2017-07-24] MEDS ORDERED: Lorazepam 2 MG/ML VIAL SLOW IVP PRN (04:46)
[2017-07-24] MEDS ORDERED: Furosemide 40 MG/4 ML VIAL SLOW IVP SCH ×2 (05:00→10:00)
[2017-07-24 05:31] LABS: Oxyhemoglobin 92.3 % (94.0-97.0); Sodium 144 mmol/L (135-148)
[2017-07-24 05:35] LABS: Modified Allen's Test POSITIVE; PIP 12 cmH2O; Pressure Support 7 cmH2O; Vent YES
[2017-07-24 06:28] VITALS: BMI 36.7
--- NOTE | 2017-07-24 06:57 | PDOC.FM ---
- Subjective Subjective: Patient again had an episode of respiratory distress overnight. She was given an extra dose of lasix with very good output. She also was placed on the BIPAP. She was no longer in respiratory distress during the interview this AM. - Objective Vital Signs & Weight: Vital Signs (12 hours) Temp Pulse Resp BP BP Pulse Ox 07/24/17 05:55 124 H 26 H 158/82 H 98 07/24/17 04:40 147 H 28 H 90 L 07/24/17 04:29 98.8 F 147 H 32 H 197/101 H 92 L 07/24/17 03:44 95 07/23/17 19:30 97.8 F 120 H 22 H 160/76 H 92 L Weight Weight 93.553 kg I&O: 07/22/17 07/23/17 07/24/17 06:59 06:59 06:59 Intake Total 2720 1100 220 Output Total 5475 1275 1500 Balance -9400 -771 -4662 Result Diagrams: 07/23/17 05:20 07/23/17 05:20 <Saturnino Barnes - Last Filed: 07/24/17 11:39> - Objective Vital Signs & Weight: Vital Signs (12 hours) Temp Pulse Resp BP BP Pulse Ox 07/25/17 08:39 108 H 154/82 H 07/25/17 07:12 108 H 16 97 07/25/17 07:00 97.9 F 117 H 20 183/100 H 97 07/25/17 03:00 98.2 F 109 H 20 169/85 H 96 07/25/17 00:23 108 H 16 97 07/25/17 00:00 98.7 F 108 H 20 155/79 H 96 Weight Weight 87.543 kg I&O: 07/24/17 07/25/17 07/26/17 06:59 06:59 06:59 Intake Total 220 950 Output Total 1500 5675 Balance -9916 -3795 Result Diagrams: 07/25/17 04:53 07/25/17 04:53 <Raza Vargas - Last Filed: 07/25/17 09:01> Phys Exam - Physical Examination HEENT: PERRLA Respiratory: wheezing present No crackles appreciated Cardiovascular: RRR, no significant murmur Gastrointestinal: soft, non-tender, no distention, positive bowel sounds Musculoskeletal: no edema, pulses present Neurological: non-focal, moves all 4 limbs Psychiatric: normal affect, A&O x 3 <Saturnino Barnes - Last Filed: 07/24/17 11:39> Dx/Plan (1) Sepsis due to urinary tract infection Code(s): A41.9 - SEPSIS, UNSPECIFIED ORGANISM; N39.0 - URINARY TRACT INFECTION, SITE NOT SPECIFIED Status: Acute Plan: -Possibly due to UTI or CAP, will cover for both. -s/p 4L NS bolus -Ceftriaxone 07/20 and Azithromycin 07/20 -Urine culture grew E. coli sensitive to Ceftriaxone. -Blood culture no growth to date. -Improved -Continue current therapy (2) Acute respiratory failure with hypoxia Code(s): J96.01 - ACUTE RESPIRATORY FAILURE WITH HYPOXIA Status: Acute Plan: -Still requiring 3L O2 via nasal cannula -Baseline is no oxygen -Continue to titrate O2 to above 92% -Crackles and wheezes present -Continue Duonebs -Continue CPAP machine -Likely COPD exacerbation with pneumonia -Continue Antibiotics -Prednisone -BIPAP therapy if needed -Increased lasix to 40mg BID (3) UTI (urinary tract infection) Status: Acute Qualifiers: Urinary tract infection type: acute cystitis Hematuria presence: without hematuria Qualified Code(s): N30.00 - Acute cystitis without hematuria Plan: -Urine culture positive for E. coli -Continue antibiotics (4) CKD stage 2 due to type 2 diabetes mellitus Code(s): E11.22 - TYPE 2 DIABETES MELLITUS W DIABETIC CHRONIC KIDNEY DISEASE; N18.2 - CHRONIC KIDNEY DISEASE, STAGE 2 (MILD) Status: Chronic Plan: -Continue to Monitor -Improved from admission (5) Hypertension, benign Code(s): I10 - ESSENTIAL (PRIMARY) HYPERTENSION Status: Chronic Plan: restarted home BP meds (6) Migraine headache Code(s): G43.909 - MIGRAINE, UNSP, NOT INTRACTABLE, WITHOUT STATUS MIGRAINOSUS Status: Chronic Plan: -Tylenol #3 which she takes at home for migraines (7) Acute kidney injury Code(s): N17.9 - ACUTE KIDNEY FAILURE, UNSPECIFIED Status: Acute Plan: -Cr on admission was 1.77 -Improved -Continue to monitor urine output and BMP (8) Cardiomegaly Code(s): I51.7 - CARDIOMEGALY Status: Acute Plan: ECHO results normal (9) Hyperlipidemia Code(s): E78.5 - HYPERLIPIDEMIA, UNSPECIFIED Status: Chronic Plan: Continue statin - Plan Plan: Increased Lasix, Continue antibiotics, consider correction COPD treatment. Will likely not discharge today. <Saturnino Barnes - Last Filed: 07/24/17 11:39> Attending Addendum - Attending Addendum I personally evaluated the patient and discussed the management on DOS 07/[address] Barnes. I agree with the History, Examination, Assessment and Plan documented above with any addition or exceptions noted below. She is feeling better after transfer to MICU yesterday evening and diuresis. She appears anxious and complains of the shakes/tremor and jerking that causes her to spill her coffee, etc. She continues to remove her nasal canula because it is uncomfortable on her face. Lungs: Distant breath sounds, no rales, rhonci or wheezes on my exam. Cor: RRR. No edema. A: She has a complex respiratory picture with components of CHF/Fluid overload, COPD and possible component of pneumonia. P: Due to her tremor and myoclonic jerks we will discontinue albuterol and place her on scheduled inhaled atrovent. For anxiety continue Celexa, Amitriptyline, and start Klonopin. Continue antibiotics for UTI and COPD exacerbation vs. pneumonitis. For CHF continue Lasix 40 bid and monitor closely. [facility] <Raza Vargas - Last Filed: 07/25/17 09:01>
[2017-07-24] MEDS ORDERED: Spiriva 18 MCG CAP (Box of 5 Caps) INH SCH (07:00)
[2017-07-24] MEDS: HumaLOG 300 UNITS/3 ML VIAL SC PRN ×3 (07:01→17:18)
[2017-07-24 07:10] LABS: #Lymphocytes 1.3 thou/uL (1.20-3.40); #Neutrophils 16.1 thou/uL (1.40-6.50); %Eosinophils 0.2 % (0.0-10.0); %Lymphocytes 6.8 % (21.0-51.0); %Monocytes 10.3 % (0.0-10.0); Mean Platelet Volume 8.2 fL (7.4-10.4); Red Blood Cell (RBC) Count 3.29 mill/uL (4.20-5.40); White Blood Cell (WBC) Count 19.5 thou/uL (4.8-10.8)
[2017-07-24] MEDS ORDERED: Furosemide 40 MG TAB PO SCH ×2 (07:30→09:00)
[2017-07-24 07:33] LABS: Anion Gap 15 mmol/L (10-20); BUN (Urea Nitrogen) 20 mg/dL (9.8-20.1); Calc. Creatinine Clearance 71 mL/min (70-130); Calcium 9.2 mg/dL (7.8-10.44); Carbon Dioxide 28 mmol/L (23-31); Chloride 103 mmol/L (98-107); Estimated GFR-MDRD 50
[2017-07-24] MEDS ORDERED: Furosemide 20 MG TAB PO SCH (09:00)
[2017-07-24] MEDS ORDERED: Atorvastatin Calcium 40 MG TAB PO SCH (09:00)
[2017-07-24] MEDS: Enoxaparin Sodium 40 MG/0.4 ML SYRINGE SC SCH (09:03)
[2017-07-24] MEDS: Famotidine/PF 20 mg/2ml Vial SLOW IVP SCH (09:05)
[2017-07-24] MEDS: Lisinopril 2.5 MG TAB PO SCH (09:05)
[2017-07-24] MEDS: Aspirin 81 mg Enteric Coated Tablet PO SCH (09:06)
[2017-07-24] MEDS: Atorvastatin Calcium 40 MG TAB PO SCH (09:06)
[2017-07-24] MEDS: Pregabalin 75 MG CAP PO SCH ×3 (09:07→21:38)
--- NOTE | 2017-07-24 09:28 | PRG ---
DATE OF SERVICE: 07/24/2017 The patient was apparently transferred over to the Intermediate Care Unit last night because of an e pisode of respiratory distress attributable to pulmonary edema. She is currently resting on BiPAP. PHYSICAL EXAMINATION: VITAL SIGNS: Temperature is 99.9, pulse 120, respirations 22, O2 sat 99% on BiPAP. HEENT: Unremarkable. NECK: No JVD. LUNGS: A few crackles in both bases. CARDIAC: S1 and S2 regular. ABDOMEN: Soft, nontender. EXTREMITIES: No edema. The chest x-ray shows pulmonary edema with perhaps an effusion on the left. LABORATORY DATA: White blood cell count 19.5, hemoglobin 10, hematocrit 31, platelet count 350. So dium 142, potassium 3.9, chloride 103, CO2 20, BUN 20, creatinine 1.0, glucose 254. ASSESSMENT: Pulmonary edema with pleural effusions. PLAN: 1. I would switch her over to IV diuresis. 2. Recheck chest x-ray tomorrow. 3. Wean steroid dose further.
--- NOTE | 2017-07-24 09:40 | RAD ---
SINGLE VIEW CHEST: Comparison: 07-20-17 Clinical history: Increased shortness of breath, hypoxia. FINDINGS: There is persistence of parenchymal and pleural based density of the inferior left hemithorax. There is also patchy right basilar opacity. Cardiac silhouette remains prominent. There are leads overlyi ng the chest limiting detail. Vascular congestion and interstitial edema present. IMPRESSION: Evidence to indicate decompensated CHF with bibasilar opacities, left greater than right, progressiv e from 07-20-17 exam. Continued imaging follow up is warranted. POS: [facility]
[2017-07-24] MEDS ORDERED: clonazePAM 1 MG TAB PO PRN (11:27)
[2017-07-24] MEDS ORDERED: clonazePAM 0.5 MG TAB PO SCH (12:00)
[2017-07-24] MEDS: Ipratropium Bromide 2.5 ml Neb NEB SCH ×2 (13:14→18:37)
[2017-07-24] MEDS: Furosemide 40 MG/4 ML VIAL SLOW IVP SCH (14:58)
[2017-07-24] MEDS: Budesonide 0.5 MG/2 ML NEB INH SCH (18:39)
[2017-07-25] MEDS: Ipratropium Bromide 2.5 ml Neb NEB SCH ×4 (00:23→18:37)
[2017-07-25] MEDS: cefTRIAXone\\ROCEPHIN 2 GM in Sodium Chloride 0.9% 100 ML IVPB SCH (01:07)
[2017-07-25 05:17] LABS: #Basophils 0.1 thou/uL (0.0-0.2); #Eosinphils 0.3 thou/uL (0.0-0.7); #Lymphocytes 2.3 thou/uL (1.20-3.40); #Monocytes 1.7 thou/uL (0.11-0.59); #Neutrophils 11.7 thou/uL (1.40-6.50); %Basophils 0.4 % (0.0-1.0); %Eosinophils 1.7 % (0.0-10.0); %Lymphocytes 14.5 % (21.0-51.0); %Monocytes 10.5 % (0.0-10.0); Hematocrit 33.8 % (36.0-47.0); Mean Platelet Volume 8.1 fL (7.4-10.4); Red Blood Cell (RBC) Count 3.59 mill/uL (4.20-5.40)
[2017-07-25 05:28] LABS: Anion Gap 14 mmol/L (10-20); BUN (Urea Nitrogen) 23 mg/dL (9.8-20.1); Calc. Creatinine Clearance 74 mL/min (70-130); Calcium 9.3 mg/dL (7.8-10.44); Carbon Dioxide 34 mmol/L (23-31); Chloride 101 mmol/L (98-107); Estimated GFR-MDRD 52
[2017-07-25] MEDS: HumaLOG 300 UNITS/3 ML VIAL SC PRN ×2 (05:44→16:49)
[2017-07-25] MEDS: Furosemide 40 MG/4 ML VIAL SLOW IVP SCH ×2 (05:44→14:29)
--- NOTE | 2017-07-25 06:49 | PDOC.FM ---
- Subjective Subjective: Patient states she had a good night. She said she slept a lot and thinks it is the anxiety pills. She notes her breathing is better. She states she slept with just the nasal cannula last night. She is requesting the anxiety medication be cut in half so she doesn't feel so drowsy. She also complains of needing a bowel movement, but she wants to try prune juice prior to any medications. She had no other complaints at this time. - Objective Vital Signs & Weight: Vital Signs (12 hours) Temp Pulse Resp BP Pulse Ox 07/25/17 03:00 98.2 F 109 H 20 169/85 H 96 07/25/17 00:23 108 H 16 97 07/25/17 00:00 98.7 F 108 H 20 155/79 H 96 07/24/17 20:00 98.4 F 108 H 18 98 07/24/17 19:25 98.4 F 108 H 18 156/86 H 98 Weight Weight 87.543 kg I&O: 07/23/17 07/24/17 07/25/17 06:59 06:59 06:59 Intake Total 1100 220 950 Output Total 1275 1500 5675 Balance -851 -9616 -9360 Result Diagrams: 07/25/17 04:53 07/25/17 04:53 <Saturnino Barnes - Last Filed: 07/25/17 11:00> - Objective Vital Signs & Weight: Vital Signs (12 hours) Temp Pulse Resp BP BP Pulse Ox 07/25/17 08:39 108 H 154/82 H 07/25/17 08:00 98.0 F 108 H 16 98 07/25/17 07:12 108 H 16 97 07/25/17 07:00 97.9 F 117 H 20 183/100 H 97 07/25/17 03:00 98.2 F 109 H 20 169/85 H 96 07/25/17 00:23 108 H 16 97 07/25/17 00:00 98.7 F 108 H 20 155/79 H 96 Weight Weight 87.543 kg I&O: 07/24/17 07/25/17 07/26/17 06:59 06:59 06:59 Intake Total 220 950 Output Total 1500 5675 Balance -7657 -0472 Result Diagrams: 07/25/17 04:53 07/25/17 04:53 <Raza Vargas - Last Filed: 07/25/17 11:44> Phys Exam - Physical Examination HEENT: PERRLA, moist MMs Neck: no nodes, supple Crackles at bilateral lung bases, Diminished breath sounds. Cardiovascular: RRR, no significant murmur Gastrointestinal: soft, non-tender, no distention, positive bowel sounds Musculoskeletal: no edema, pulses present Neurological: non-focal, moves all 4 limbs Tremor is much improved today. Psychiatric: normal affect, A&O x 3 Skin: no rash <Saturnino Barnes - Last Filed: 07/25/17 11:00> Dx/Plan (1) Sepsis due to urinary tract infection Code(s): A41.9 - SEPSIS, UNSPECIFIED ORGANISM; N39.0 - URINARY TRACT INFECTION, SITE NOT SPECIFIED Status: Acute Plan: -Possibly due to UTI or CAP, will cover for both. -s/p 4L NS bolus -Ceftriaxone 07/20 and Azithromycin 07/20, D/C Azithromycin 07/24 because of QT prolongation. -Urine culture grew E. coli sensitive to Ceftriaxone. -Blood culture no growth to date. -Improved -Continue current therapy (2) Acute respiratory failure with hypoxia Code(s): J96.01 - ACUTE RESPIRATORY FAILURE WITH HYPOXIA Status: Acute Plan: -Still requiring 3L O2 via nasal cannula -Baseline is no oxygen -Continue to titrate O2 to above 92% -Continue CPAP machine -Likely COPD exacerbation with pneumonia -Continue Antibiotics -BIPAP therapy if needed -Increased lasix to 40mg BID -Started patient on inhaled steroid and atrovent to try to decrease tremors. -May be more due to fluid state and COPD exacerbation. -Will continue current therapy. (3) UTI (urinary tract infection) Status: Acute Qualifiers: Urinary tract infection type: acute cystitis Hematuria presence: without hematuria Qualified Code(s): N30.00 - Acute cystitis without hematuria Plan: -Urine culture positive for E. coli -Continue antibiotics -Will likely d/c cody in near future. (4) CKD stage 2 due to type 2 diabetes mellitus Code(s): E11.22 - TYPE 2 DIABETES MELLITUS W DIABETIC CHRONIC KIDNEY DISEASE; N18.2 - CHRONIC KIDNEY DISEASE, STAGE 2 (MILD) Status: Chronic Plan: -Continue to Monitor -Improved from admission (5) Hypertension, benign Code(s): I10 - ESSENTIAL (PRIMARY) HYPERTENSION Status: Chronic Plan: restarted home BP meds (6) Migraine headache Code(s): G43.909 - MIGRAINE, UNSP, NOT INTRACTABLE, WITHOUT STATUS MIGRAINOSUS Status: Chronic Plan: -Tylenol #3 which she takes at home for migraines (7) Acute kidney injury Code(s): N17.9 - ACUTE KIDNEY FAILURE, UNSPECIFIED Status: Acute Plan: -Cr on admission was 1.77 -Improved -Continue to monitor urine output and BMP (8) Cardiomegaly Code(s): I51.7 - CARDIOMEGALY Status: Acute Plan: ECHO results normal (9) Hyperlipidemia Code(s): E78.5 - HYPERLIPIDEMIA, UNSPECIFIED Status: Chronic Plan: Continue statin (10) COPD (chronic obstructive pulmonary disease) Status: Acute Plan: -Continue O2 titration -Continue Atrovent -Continue Pulmicort -Likely need to have treatment as outpatient. - Plan Plan: Transfer out of [facility]. Monitor status today, fluid overload and oxygen requirements. <Saturnino Barnes - Last Filed: 07/25/17 11:00> Attending Addendum - Attending Addendum I personally evaluated the patient and discussed the management with Dr. Barnes. I agree with the History, Examination, Assessment and Plan documented above with any addition or exceptions noted below. Feels Much Better today. Slept well. Too drowsy after Klonopin mid day. Tremor and myoclonus are virtually resolved. Lungs: few faint crackle L base only. A: Improved P: transfer to floor. BNP repeat. Review echo with cardiology to see if she had some unreported diastolic dysfunction. Possible discharge in a.m. if stable. [facility] <Raza Vargas - Last Filed: 07/25/17 11:44>
[2017-07-25] MEDS: Budesonide 0.5 MG/2 ML NEB INH SCH ×2 (07:14→18:36)
--- NOTE | 2017-07-25 08:38 | PRG ---
DATE OF SERVICE: 07/25/2017 The patient did better last night, did not wear her BiPAP. PHYSICAL EXAMINATION: VITAL SIGNS: Temperature 97.8, pulse 108, respirations 16, O2 sat 97% on 3 liters, blood pressure 1 83/100. Total intake for 24 hours 950, output 5675. HEENT: Unremarkable. NECK: No JVD. CHEST: Clear. CARDIAC: S1 and S2 regular. ABDOMEN: Soft. EXTREMITIES: No edema. LABORATORY DATA: White blood cell count 16, hematocrit 33.8, platelet count 361. Sodium 145, potas sium 3.5, chloride 101, CO2 34, BUN 23, creatinine 1.0, glucose 217. ASSESSMENT: Pulmonary edema - improved with IV diuresis. RECOMMENDATIONS: 1. I would transfer her out to the floor. 2. Should be okay to transition to oral antibiotics, but I would continue the IV diuresis.
[2017-07-25] MEDS: Pregabalin 75 MG CAP PO SCH ×3 (08:39→20:34)
[2017-07-25] MEDS: Lisinopril 2.5 MG TAB PO SCH (08:39)
[2017-07-25] MEDS: Famotidine/PF 20 mg/2ml Vial SLOW IVP SCH (08:40)
[2017-07-25] MEDS: Aspirin 81 mg Enteric Coated Tablet PO SCH (08:40)
[2017-07-25] MEDS: Enoxaparin Sodium 40 MG/0.4 ML SYRINGE SC SCH (08:40)
[2017-07-25] MEDS: Atorvastatin Calcium 40 MG TAB PO SCH (08:40)
--- NOTE | 2017-07-25 09:42 | RAD ---
CHEST 2 VIEWS: Date: 07/25/17 HISTORY: Dyspnea. Pulmonary edema. COMPARISON: 07/24/17. FINDINGS: Cardiac silhouette is partially obscured by patchy bibasilar infiltrates that have increased since t he previous study. Pulmonary vasculature is engorged with fluffy bilateral perihilar infiltrates. Sm all amount of bilateral pleural fluid is apparent. Mediastinum is midline with aortic calcification. telemetry monitor leads overlie the chest. IMPRESSION: Increasing pulmonary edema. POS: [facility]
[2017-07-25] MEDS ORDERED: clonazePAM 0.5 MG TAB PO SCH (21:00)
[2017-07-26] MEDS: Ipratropium Bromide 2.5 ml Neb NEB SCH ×3 (00:38→13:56)
[2017-07-26] MEDS: cefTRIAXone\\ROCEPHIN 2 GM in Sodium Chloride 0.9% 100 ML IVPB SCH (00:59)
[2017-07-26 05:33] LABS: #Basophils 0.1 thou/uL (0.0-0.2); #Eosinphils 0.5 thou/uL (0.0-0.7); #Lymphocytes 2.9 thou/uL (1.20-3.40); #Monocytes 1.5 thou/uL (0.11-0.59); #Neutrophils 11.4 thou/uL (1.40-6.50); %Basophils 0.5 % (0.0-1.0); %Eosinophils 3.3 % (0.0-10.0); %Lymphocytes 17.7 % (21.0-51.0); %Monocytes 8.9 % (0.0-10.0); Hematocrit 34.3 % (36.0-47.0); Mean Platelet Volume 8.3 fL (7.4-10.4); Red Blood Cell (RBC) Count 3.64 mill/uL (4.20-5.40); White Blood Cell (WBC) Count 16.3 thou/uL (4.8-10.8)
[2017-07-26 05:52] LABS: Anion Gap 11 mmol/L (10-20); BUN (Urea Nitrogen) 23 mg/dL (9.8-20.1); Calc. Creatinine Clearance 73 mL/min (70-130); Calcium 9.3 mg/dL (7.8-10.44); Carbon Dioxide 36 mmol/L (23-31); Chloride 97 mmol/L (98-107); Estimated GFR-MDRD 55
[2017-07-26] MEDS: Furosemide 40 MG/4 ML VIAL SLOW IVP SCH ×2 (06:07→14:21)
[2017-07-26] MEDS: Budesonide 0.5 MG/2 ML NEB INH SCH (06:18)
--- NOTE | 2017-07-26 08:08 | PDOC.FM ---
- Subjective Subjective: Patient had a good night. She thinks she slept without her CPAP machine and I told her that I definitely want her to use her CPAP every single night. She states the tremor is still absent and she thinks her breathing is better. She notes that the Lasix is making her pee a bunch. She has no other complaints at this time. - Objective Vital Signs & Weight: Vital Signs (12 hours) Temp Pulse Resp BP BP Pulse Ox 07/26/17 06:18 104 H 16 97 07/26/17 06:16 104 H 16 97 07/26/17 04:00 98.3 F 100 20 133/81 94 L 07/26/17 01:06 98 07/26/17 00:38 105 H 12 07/26/17 00:00 105 H 18 134/72 95 07/25/17 20:35 98.3 F 115 H 20 92 L 07/25/17 20:34 98.3 F 115 H 20 129/74 92 L Weight Weight 89.981 kg I&O: 07/25/17 07/26/17 07/27/17 06:59 06:59 06:59 Intake Total 950 864 Output Total 5689 0760 [place] [address] [address] -5109 -3162 Result Diagrams: 07/26/17 04:28 07/26/17 04:28 <Saturnino Barnes - Last Filed: 07/26/17 11:45> - Objective Vital Signs & Weight: Vital Signs (12 hours) Temp Pulse Resp BP BP BP Pulse Ox 07/26/17 10:03 116 H 111/57 L 07/26/17 08:00 97.6 F 116 H 20 92 L 07/26/17 07:40 97.6 F 116 H 20 111/57 L 92 L 07/26/17 06:18 104 H 16 97 07/26/17 06:16 104 H 16 97 07/26/17 04:00 98.3 F 100 20 133/81 94 L 07/26/17 01:06 98 07/26/17 00:38 105 H 12 07/26/17 00:00 105 H 18 134/72 95 Weight Weight 89.981 kg I&O: 07/25/17 07/26/17 07/27/17 06:59 06:59 06:59 Intake Total 950 864 Output Total 5653 3115 300 Balance -0896 -0696 -300 Result Diagrams: 07/26/17 04:28 07/26/17 04:28 <Raza Vargas - Last Filed: 07/26/17 11:55> Phys Exam - Physical Examination HEENT: PERRLA, moist MMs Neck: no nodes Respiratory: no wheezing Few crackles present at lung bases, diminished lung sounds. Cardiovascular: no significant murmur tachycardic Gastrointestinal: soft, non-tender, no distention, positive bowel sounds Musculoskeletal: no edema, pulses present Neurological: non-focal, normal sensation, moves all 4 limbs Psychiatric: normal affect, A&O x 3 Skin: no rash <Saturnino Barnes - Last Filed: 07/26/17 11:45> Dx/Plan (1) Sepsis due to urinary tract infection Code(s): A41.9 - SEPSIS, UNSPECIFIED ORGANISM; N39.0 - URINARY TRACT INFECTION, SITE NOT SPECIFIED Status: Resolved Plan: -Possibly due to UTI or CAP, will cover for both. -s/p 4L NS bolus -Ceftriaxone 07/20 and Azithromycin 07/20, D/C Azithromycin 07/24 because of QT prolongation. -Urine culture grew E. coli sensitive to Ceftriaxone. -Blood culture no growth to date. -Improved -6th day of antibiotics. Will consider treating for 7-10 days, but evidence of infection has resolved. May switch to PO antibiotics or discontinue. (2) Acute respiratory failure with hypoxia Code(s): J96.01 - ACUTE RESPIRATORY FAILURE WITH HYPOXIA Status: Acute Plan: -Still requiring 3L O2 via nasal cannula -Baseline is no oxygen -Continue to titrate O2 to above 92% -Continue CPAP machine -Likely COPD exacerbation with pneumonia -Continue Antibiotics -BIPAP therapy if needed -Increased lasix to 40mg BID -Started patient on inhaled steroid and atrovent to try to decrease tremors. -May be more due to fluid state and COPD exacerbation. -Will continue current therapy. (3) Hypertension, benign Code(s): I10 - ESSENTIAL (PRIMARY) HYPERTENSION Status: Chronic Plan: restarted home BP meds (4) Migraine headache Code(s): G43.909 - MIGRAINE, UNSP, NOT INTRACTABLE, WITHOUT STATUS MIGRAINOSUS Status: Chronic Plan: -Tylenol #3 which she takes at home for migraines -Has not had another migraine since admission (5) Acute kidney injury Code(s): N17.9 - ACUTE KIDNEY FAILURE, UNSPECIFIED Status: Acute Plan: -Cr on admission was 1.77 -Improved -Continue to monitor urine output and BMP -Cr today 0.99 likely resolved. (6) Cardiomegaly Code(s): I51.7 - CARDIOMEGALY Status: Acute Plan: ECHO results normal (7) Hyperlipidemia Code(s): E78.5 - HYPERLIPIDEMIA, UNSPECIFIED Status: Chronic Plan: Continue statin (8) COPD (chronic obstructive pulmonary disease) Status: Acute Plan: -Continue O2 titration -Continue Atrovent -Continue Pulmicort -Likely need to have treatment as outpatient. - Plan Plan: Infection adequately treated so will be discontinued. Patient will go home on COPD medications and home oxygen. This patient will require supplemental O2 24hrs a day because of a resting oxygen saturation of 82% and a room air ABG consistent with the need for oxygen supplementation. Please titrate oxygen saturation to at least 92%. <Saturnino Barnes - Last Filed: 07/26/17 11:45> Attending Addendum - Attending Addendum I personally evaluated the patient and discussed the management with Dr. Barnes. I agree with the History, Examination, Assessment and Plan documented above with any addition or exceptions noted below. She feels great. Ready to go home. O2 is still 84% stable on RA. She has bilateral lower lobe rales. BNP repeat was 350s. Will dc home on Lasix 40 qd. Cut back on fluids. Follow up in clinic with Dr. Page. Continue CPAP at night and naps. Plan for her to wean oxygen if able. Continue inhaled steroid and atrovent for new dx COPD. [facility]. <Raza Vargas - Last Filed: 07/26/17 11:55>
[2017-07-26] MEDS: HumaLOG 300 UNITS/3 ML VIAL SC PRN ×2 (09:00→11:57)
[2017-07-26] MEDS: Atorvastatin Calcium 40 MG TAB PO SCH (10:03)
[2017-07-26] MEDS: Aspirin 81 mg Enteric Coated Tablet PO SCH (10:03)
[2017-07-26] MEDS: Pregabalin 75 MG CAP PO SCH ×2 (10:03→14:22)
[2017-07-26] MEDS: Lisinopril 2.5 MG TAB PO SCH (10:03)
[2017-07-26] MEDS: Famotidine/PF 20 mg/2ml Vial SLOW IVP SCH (10:04)
[2017-07-26] MEDS: Enoxaparin Sodium 40 MG/0.4 ML SYRINGE SC SCH (10:05)
--- NOTE | 2017-07-26 10:45 | PRG ---
DATE OF SERVICE: 07/26/2017 She feels well and wants to go home. PHYSICAL EXAMINATION: VITAL SIGNS: Temperature is 97.6, pulse 116, blood pressure 111/57, O2 sat 95% on 2-1/2 liters. HEENT: Unremarkable. NECK: No JVD. LUNGS: Fairly clear. CARDIAC: S1 and S2 regular. ABDOMEN: Soft. EXTREMITIES: No edema. LABORATORY DATA: White blood cell count 16, hematocrit 34, platelet count 397, sodium 141, potassiu m 3.4, chloride 97, CO2 36, BUN 23, creatinine 0.9, glucose 219. ASSESSMENT: Acute respiratory failure secondary to congestive heart failure. PLAN: She seems ready to go home from my standpoint. She needs to work on fluid restriction at [facility].
[2017-07-26] MEDS: Acetaminophen 325 MG TAB PO PRN (14:31)
[2017-07-26 15:29] VITALS: BP 121/56; TEMP 97.8
--- NOTE | 2017-07-27 01:08 | DIS-2 ---
DATE OF ADMISSION: 07/20/2017 DATE OF DISCHARGE: 07/26/2017 RESIDENT: Dr. Barnes. ADMITTING ATTENDING: Chel Mascorro M.D. DISCHARGE ATTENDING: Raza Vargas M.D. CONSULTATIONS: Case management for home oxygen as well as home health with nursing care and PT and OT and also with Pulmonology with Dr. Jeff. PRIMARY DIAGNOSES: 1. Sepsis due to urinary tract infection. 2. Acute respiratory failure with hypoxia. 3. Chronic obstructive pulmonary disease exacerbation. 4. Acute kidney injury. 5. Cardiomegaly. SECONDARY DIAGNOSES: 1. Hypertension. 2. Hyperlipidemia. 3. Migraine headaches. 4. Hyperlipidemia. DISCHARGE MEDICATIONS: 1. Amitriptyline 150 mg. 2. Pantoprazole 40 mg. 3. Celexa 40 mg. 4. Lyrica 75 mg t.i.d. 5. Aspirin 81 mg. 6. Amlodipine 10 mg. 7. Coreg 6.25 mg b.i.d. 8. Glipizide 5 mg. 9. Janumet 5-1000 mg b.i.d. 10. Ferrous sulfate 325 mg b.i.d. 11. Atorvastatin 40 mg. 12. Potassium chloride 10 mEq. 13. Lisinopril 2.5 mg. 14. Furosemide 40 mg. 15. Acetaminophen with codeine. 16. Flovent 220 mcg inhaler b.i.d. 17. Inhaler, assist device, space chamber. 18. Atrovent HFA 200 puff aerosol. DISCONTINUED MEDICATIONS: None. PROCEDURES: She did have a transthoracic echocardiogram that was read as normal with no diastolic dysfunction with an EF of 60%-65%. HISTORY OF PRESENT ILLNESS AND HOSPITAL COURSE: This is a 72-year-old female with past medical history of chronic kidney disease, stage 2; hypertension; diabetes mellitus type 2; obstructive sleep apnea, on CPAP; and possible COPD, that presented from [place] with altered mental status. The patient's home mate called EMS as she was not acting herself. The patient reportedly fell while trying to make her way to the restroom a couple of days ago. She was seen in clinic by Dr. Page at that time. Today, patient presented with altered mental status, hypoxia, 87% on room air, tachycardia, increased white blood cell count, acute on chronic kidney injury. She is unable to provide reliable history secondary to altered mental status. Primary care records were obtained from [facility] charts. The patient was given 2 liters of normal saline in the ED and started on Rocephin, vancomycin and Zosyn. Upon further evaluation, she had a chest x-ray that had showed a left lower lobe atelectasis versus pneumonia. She then had a chest CTA from an elevated D-dimer, but did not show any pulmonary embolism, but did show pneumonia. She also had a urinalysis that showed signs of infection and had a urine culture that grew out E. coli sensitive to ceftriaxone. The patient at that time was then put on treatment for community-acquired pneumonia, azithromycin and ceftriaxone that would cover the urinary tract infection as well. She was aggressively fluid resuscitated as by sepsis protocol along with the antibiotics. The patient was also put on furosemide at this time for fluid overload state. The patient required some prednisone and some additional inhaled medication to resolve her airway problems. The patient had 2 episodes of respiratory distress while in the hospital; one mostly because of a fluid overload state, but also secondary to her underlying chronic obstructive pulmonary disease. The patient required additional doses of Lasix as well as BiPAP therapy twice during this hospitalization. The patient uses her home CPAP at home with oxygen therapy, but at this time, it was likely that the patient would need to be discharged with home oxygen therapy at all times of the day. The patient has also had troubles with tremors during this hospitalization where she would be frequently spilling drinks, dropping food on the ground, and not being able to function very well. We figured that was mostly because of the prednisone and the albuterol that she was receiving via treatment for her lung disease. At that time, it was decided that she would be changed to Pulmicort and Atrovent without any of the beta- agonist agents. She tolerated this change very well. She no longer had any respiratory compromise or respiratory distress. She continually showed signs of improvement. Her white blood cell count trended down. She became afebrile and her lab values stabilized. Two ABGs were ordered on this patient; on room air, she showed a pH of 7.35, CO2 of 52.2, pO2 of 63.8 and so that was basically indicative that she is retaining CO2 and will require further oxygen therapy. On day of discharge, her resting oxygen saturation on room air was 82% oxygen. The patient was not able to tolerate room air very long without the oxygen, and therefore, will need to have 24-hour oxygen therapy when she goes home. We also encouraged her to continue to use her CPAP machine at night with oxygen therapy as she did not use though in the last 2 nights, she was in the hospital because she was just using the nasal cannula. The patient was needed to be on b.i.d. dosing of furosemide for her fluid overload state, but that will be decreased to once a day dosing as she goes out of the hospital with a close followup with her PCP. The patient's mentation improved and no longer had any altered mental status. Her kidney function continually improved. She had notable lab values of white blood cell count that ranged from 19.5 on admission to as high as 21.1 to a day of discharge white blood cell count of 16.3. Patient also had a creatinine on day of admission of 1.77 that steadily decreased to a day of discharge creatinine of 0.99. The patient does not have very well control with her glucose, but because she was admitted with a sepsis- like picture, aggressive glucose control was not a priority. BNP went from 36 on day of admission to 355 during the hospitalization, so we do believe that there is a component of heart failure that will need to be worked up as an outpatient.The patient also was having trouble with tachycardia during this entire hospitalization. Her vital signs showed that she would stay on day of admission. Her heart rate was around in the 130s-140s, and on day of discharge , her heart rate was 100-110 going forward. We do recommend that she restart her Coreg and see her primary care physician as an outpatient. We are not sure what is causing her tachycardia at this point, but restarting her beta jayesh will most likely help with that. Both her urinary tract infection and the community-acquired pneumonia have been adequately treated, and antibiotics were discontinued at that time. The patient will be discharged with further treatment for her COPD, and the patient will be discharged with fluticasone, Flovent HFA and ipratropium or Atrovent going forward with outpatient management from a primary care physician. The patient otherwise tolerated the hospitalization very well and make steady improvement throughout the hospital course and will be discharged in appropriate condition on 07/26/2017. DISPOSITION: Stable. DISCHARGE INSTRUCTIONS: 1. Location: She will be discharged home to her living situation at [place]. 2. Diet will be as tolerated, but we would like her to have a heart healthy diet as well as a diabetic diet. 3. Activity will be as tolerated, but we would like her to take it easy in the coming weeks to regain her strength, and she will also have some PT and OT evaluation and treatment with the help when she gets back home to make sure that she got her full strength back and she is safe living in that situation. 4. Followup: Followup will be with Dr. Catalino Page, her primary care provider at [facility] in 3-5 days. We wish her the best of luck. We hope that she can get all of her illnesses under better control, and she lives a long healthy and happy life. JERAD
[2017-07-27] MEDS ORDERED: Famotidine 20 MG TAB PO SCH (09:00)
--- NOTE | 2017-07-28 13:59 | EKG ---
Test Reason : Blood Pressure : / mmHG Vent. Rate : 111 BPM Atrial Rate : 111 BPM P-R Int : 180 ms QRS Dur : 092 ms QT Int : 324 ms P-R-T Axes : 055 -04 049 degrees QTc Int : 440 ms Sinus tachycardia with Premature atrial complexes with Abberant conduction Otherwise normal ECG Confirmed by HENRY SMART ([id number]), film or videotape editor FAIZA SHIPMAN ([id number]) on 07/28/2017 1:59:20 PM Referred By: BERRY Confirmed By:HNERY SMART
== END 2017-07-26 16:09 | disposition home health service (06) | DRG 871 ==
LOC: ERS 08:22 → IMCU/EMU 12:07 → 2NO 07-22 14:48 → IMCU/EMU 07-24 06:10 → 2NO 07-25 17:14
PROVIDERS: ADMIT Family Medicine; ATTEND Family Medicine
PROC: 5A09357 Assistance with Respiratory Ventilation, Less than 24 Consecutive Hours, Continuous Positive Airway Pressure (ICD-10-PCS; principal; 2017-07-22)
DX: A41.9 Sepsis, unspecified organism (principal); J18.9 Pneumonia, unspecified organism; J96.01 Acute respiratory failure with hypoxia; N17.9 Acute kidney failure, unspecified; J44.1 Chronic obstructive pulmonary disease with (acute) exacerbation; J44.0 Chronic obstructive pulmonary disease with (acute) lower respiratory infection; N30.00 Acute cystitis without hematuria; E11.22 Type 2 diabetes mellitus with diabetic chronic kidney disease; E11.42 Type 2 diabetes mellitus with diabetic polyneuropathy; R65.20 Severe sepsis without septic shock; E66.01 Morbid (severe) obesity due to excess calories; Z68.35 Body mass index [BMI] 35.0-35.9, adult; E78.5 Hyperlipidemia, unspecified; D63.1 Anemia in chronic kidney disease; I12.9 Hypertensive chronic kidney disease with stage 1 through stage 4 chronic kidney disease, or unspecified chronic kidney disease; N18.2 Chronic kidney disease, stage 2 (mild); G47.33 Obstructive sleep apnea (adult) (pediatric); G43.109 Migraine with aura, not intractable, without status migrainosus; F32.9 Major depressive disorder, single episode, unspecified; Z88.5 Allergy status to narcotic agent; Z88.8 Allergy status to other drugs, medicaments and biological substances; Z87.891 Personal history of nicotine dependence; E66.9 Obesity, unspecified; B96.20 Unspecified Escherichia coli [E. coli] as the cause of diseases classified elsewhere; I51.7 Cardiomegaly
CPT/HCPCS: 36415; 36416; 51701; 70450; 71010; 71020; 71275; 74176; 80048; 80053; 81003; 81015; 82550; 82553; 82805; 83605; 83690; 83880; 84145; 84484; 85025; 85379; 87040; 87077; 87086; 87186; 93005; 93010; 93306; 94640; 94660; 94760; 96365; 96367; A4216; A4353; J0456; J0696; J1650; J1940; J2060; J2543; J3370; J7050; J7506; J7611; J7620; J7626; J7644; S0028

== ENCOUNTER 2017-07-26 17:42 | Emergency (ER) | payer MEDICAID, MEDICARE ==
[~2017-07-26 17:42] MED LIST: ISOVUE-370 76%-LOCM 1 ML ONE
[2017-07-26 18:23] LABS: #Eosinphils 0.4 thou/uL (0.0-0.7); #Lymphocytes 2.8 thou/uL (1.20-3.40); #Monocytes 1.1 thou/uL (0.11-0.59); #Neutrophils 10.6 thou/uL (1.40-6.50); %Basophils 0.2 % (0.0-1.0); %Eosinophils 2.8 % (0.0-10.0); %Lymphocytes 18.6 % (21.0-51.0); %Monocytes 7.1 % (0.0-10.0); Hematocrit 35.7 % (36.0-47.0); Red Blood Cell (RBC) Count 3.79 mill/uL (4.20-5.40); White Blood Cell (WBC) Count 14.9 thou/uL (4.8-10.8)
[2017-07-26 18:30] LABS: PTT 30.9 SEC (22.9-36.1)
--- NOTE | 2017-07-26 18:47 | CT ---
BRAIN CT WITHOUT IV CONTRAST: 07/26/17 HISTORY: 72-year-old female with fall earlier today hitting her head. Patient is on blood thinners. There is some motion artifact through the skull base region. No focal mass or midline shift. No int ra or extra-axial hemorrhage. Sinuses and mastoids are clear. Stable from prior 07/20/17. IMPRESSION: Stable atrophy and chronic white matter ischemic change. No mass or bleed. POS: H
[2017-07-26 19:03] LABS: ALT (SGPT) 20 U/L (8-55); AST (SGOT) 12 U/L (5-34); Alkaline Phosphatase 110 U/L (40-150); Anion Gap 16 mmol/L (10-20); BUN (Urea Nitrogen) 30 mg/dL (9.8-20.1); Bilirubin, Total 0.2 mg/dL (0.2-1.2); Calc. Creatinine Clearance 0 mL/min (70-130); Calcium 9.3 mg/dL (7.8-10.44); Carbon Dioxide 33 mmol/L (23-31); Chloride 94 mmol/L (98-107); Estimated GFR-MDRD 32; Globulin 3.8 g/dL (2.4-3.5)
--- NOTE | 2017-07-26 19:52 | CT ---
CERVICAL SPINE CT SCAN WITHOUT IV CONTRAST: 07/26/17 HISTORY: 72-year-old female with fall striking head earlier today. Patient is on blood thinners. Multilevel disc osteophytosis and facet arthrosis with some variable severity multilevel canal, late ral recess, and foraminal stenosis most marked at C5-C6. No evidence for acute fracture or facet dis location. IMPRESSION: Spondylosis with disc osteophytosis and canal, lateral recess and foraminal stenosis most marked at C5-C6. No evidence for acute fracture or facet dislocation. POS: [facility]
--- NOTE | 2017-07-26 20:13 | CT ---
CTA CHEST WITH 3D VOLUME RENDERING 07/26/17 CLINICAL HISTORY: Hypoxia, tachycardia. Reference made to 07/21/17 exams. Grossly stable of mild left pleural effusion. Trace right pleural fluid present. Interval reduction in volume of consolidation at the lingula, although there remains multifocal consolidation of the bi lateral pulmonary parenchyma, greater on the left. There is no pneumothorax. No evidence of an acute pulmonary embolus. Scattered vascular calcification present. Redemonstration of splenosis within the left upper quadrant. Mildly enlarged thoracic lymph node grossly stable. Di ffuse osseous degenerative change present. IMPRESSION: 1. No large, central pulmonary embolus. 2. Improved, although residual multifocal consolidation which may relate to atypical pneumonia. Continued followup to resolution recommended. 3. Pleural fluid, more notable on the left. 4. Adenopathy, grossly stable. Recommend continued followup to resolution. POS: [facility]
[2017-07-26] MEDS ORDERED: Furosemide 40 MG/4 ML VIAL ONE (20:24)
[2017-07-26 21:13] LABS: Bilirubin Negative (Negative); Blood, Urine Negative (Negative); Glucose, Urine (Dipstick) Negative (Negative); Ketone, Urine Negative (Negative); Nitrite Negative (Negative); Protein, Urine (Dipstick) Negative (Neg-Trace); Urobilinogen 0.2 mg/dL (0.2-1.0)
== END 2017-07-26 21:40 ==
LOC: ERS 17:42
DX: S09.90XA Unspecified injury of head, initial encounter (principal); G43.909 Migraine, unspecified, not intractable, without status migrainosus; E11.9 Type 2 diabetes mellitus without complications; E78.5 Hyperlipidemia, unspecified; I10 Essential (primary) hypertension; J44.9 Chronic obstructive pulmonary disease, unspecified; Z87.891 Personal history of nicotine dependence; Z79.84 Long term (current) use of oral hypoglycemic drugs; Z79.891 Long term (current) use of opiate analgesic; Z79.899 Other long term (current) drug therapy; Z86.73 Personal history of transient ischemic attack (TIA), and cerebral infarction without residual deficits; W17.89XA Other fall from one level to another, initial encounter; Y92.129 Unspecified place in nursing home as the place of occurrence of the external cause
CPT/HCPCS: 51701; 70450; 71275; 72125; 81003; 83880; 85610; 85730; 94760; 96374; A4353; J1940

== ENCOUNTER 2017-09-30 06:44 | Emergency (ER) | payer MEDICARE, MEDICAID ==
[2017-09-30 07:24] LABS: #Basophils 0.1 thou/uL (0.0-0.2); #Eosinphils 0.1 thou/uL (0.0-0.7); #Lymphocytes 2.6 thou/uL (1.20-3.40); #Neutrophils 12.3 thou/uL (1.40-6.50); %Basophils 0.5 % (0.0-1.0); %Eosinophils 0.7 % (0.0-10.0); %Monocytes 6.2 % (0.0-10.0); Hematocrit 34.4 % (36.0-47.0); Mean Platelet Volume 8.2 fL (7.4-10.4); Red Blood Cell (RBC) Count 3.64 mill/uL (4.20-5.40)
[2017-09-30 07:30] LABS: Prothrombin Time 13.2 SEC (12.0-14.7)
[2017-09-30 07:31] LABS: PTT 29.4 SEC (22.9-36.1)
[2017-09-30 07:45] LABS: Anion Gap 16 mmol/L (10-20); BUN (Urea Nitrogen) 32 mg/dL (9.8-20.1); Calc. Creatinine Clearance 0 mL/min (70-130); Calcium 9.7 mg/dL (7.8-10.44); Carbon Dioxide 28 mmol/L (23-31); Chloride 101 mmol/L (98-107); Estimated GFR-MDRD 32
[2017-09-30 08:05] LABS: Bilirubin Negative (Negative); Blood, Urine Negative (Negative); Glucose, Urine (Dipstick) Negative (Negative); Ketone, Urine Negative (Negative); Nitrite Positive (Negative); Protein, Urine (Dipstick) Negative (Neg-Trace); Urobilinogen 0.2 mg/dL (0.2-1.0)
[2017-09-30 08:07] LABS: Bacteria/HPF 4+ HPF (None Seen); Hyaline Casts/LPF 0-3 HYALINE CAST LPF (0-3 Hyaline); RBC/HPF None Seen HPF (0-3); Squamous Epithelial 0-3 HPF (0-3); WBC/HPF 21-50 HPF (0-3)
--- NOTE | 2017-09-30 09:41 | CT ---
CT HEAD NONCONTRAST: Date: 09/30/17 COMPARISON: 07/26/17. INDICATION: Fall, emergency exam. FINDINGS: Ventricular system is normal in size. No intracranial hemorrhage, mass effect, or midline shift. Ther e is mild chronic microvascular ischemic disease involving cerebral white matter, which is grossly st able. Mild mucosal thickening within paranasal sinuses. No depressed calvarial fracture or pneumoceph alus. IMPRESSION: 1. No intracranial hemorrhage or mass effect. 2. Mild chronic microvascular ischemic disease. 3. Grossly stable small remote bilateral basal ganglia infarctions. POS: [facility]
--- NOTE | 2017-09-30 10:34 | CT ---
CERVIVCAL SPINE CT NONCONTRAST: Date: 09/30/17 CLINICAL HISTORY: Neck injury, pain related to fall. FINDINGS: There is no fracture or subluxation of the cervical spine. Multilevel degenerative change is present. Craniocervical junction is intact. Exam is grossly stable compared to 07/26/17. IMPRESSION: No acute osseous abnormality of the cervical spine. POS: [facility]
--- NOTE | 2017-11-09 13:32 | EKG ---
Test Reason : Blood Pressure : / mmHG Vent. Rate : 090 BPM Atrial Rate : 090 BPM P-R Int : 184 ms QRS Dur : 096 ms QT Int : 376 ms P-R-T Axes : 034 008 059 degrees QTc Int : 459 ms Normal sinus rhythm Normal ECG Confirmed by CARA GERARD, LORAINE Franco ([id number]), medical transcription editor BRANDON ACUNA ([id number]) on 11/09/2017 1:31:39 PM Referred By: Confirmed By:LORAINE MARROQUIN MD
== END 2017-09-30 10:07 | disposition home or self-care (01) ==
LOC: ERS 06:44
DX: N39.0 Urinary tract infection, site not specified (principal); B34.9 Viral infection, unspecified; G43.909 Migraine, unspecified, not intractable, without status migrainosus; E11.9 Type 2 diabetes mellitus without complications; E78.5 Hyperlipidemia, unspecified; I10 Essential (primary) hypertension; J44.9 Chronic obstructive pulmonary disease, unspecified; Z87.891 Personal history of nicotine dependence; Z86.73 Personal history of transient ischemic attack (TIA), and cerebral infarction without residual deficits
CPT/HCPCS: 36415; 70450; 72125; 80048; 81003; 81015; 85025; 85610; 85730; 87077; 87086; 87186; 93005; A4353

== ENCOUNTER 2017-11-01 12:01 | Emergency (ER) | payer MEDICARE, MEDICAID ==
[2017-11-01 12:46] LABS: #Basophils 0.1 thou/uL (0.0-0.2); #Eosinphils 0.5 thou/uL (0.0-0.7); #Lymphocytes 3.6 thou/uL (1.20-3.40); #Monocytes 1.6 thou/uL (0.11-0.59); #Neutrophils 9.1 thou/uL (1.40-6.50); %Basophils 0.7 % (0.0-1.0); %Lymphocytes 24.4 % (21.0-51.0); %Monocytes 10.5 % (0.0-10.0); %Neutrophils 61.3 % (42.0-75.0); Mean Corpuscular HGB CONC 32.8 g/dL (32.0-36.0); Mean Corpuscular Hemoglobin 30.9 pg (27.0-31.0); Mean Corpuscular Volume 94.3 fl (81.0-99.0); Mean Platelet Volume 8.4 fL (7.4-10.4); Platelet Count 338 thou/uL (130-400); RBC Distribution Width 13.6 % (11.5-14.5); White Blood Cell (WBC) Count 14.8 thou/uL (4.8-10.8)
[2017-11-01 13:07] LABS: ALT (SGPT) 15 U/L (8-55); AST (SGOT) 15 U/L (5-34); Albumin 4.5 g/dL (3.4-4.8); Alkaline Phosphatase 116 U/L (40-150); Anion Gap 17 mmol/L (10-20); BUN (Urea Nitrogen) 44 mg/dL (9.8-20.1); Bilirubin, Total 0.3 mg/dL (0.2-1.2); CK (CPK) 47 U/L (29-168); Calc. Creatinine Clearance 0 mL/min (70-130); Calcium 10.1 mg/dL (7.8-10.44); Carbon Dioxide 25 mmol/L (23-31); Chloride 101 mmol/L (98-107); Estimated GFR-MDRD 33; Globulin 3.6 g/dL (2.4-3.5); Glucose 87 mg/dL (80-115); Lipase 55 U/L (8-78); Potassium 4.7 mmol/L (3.5-5.1); Protein, Total 8.1 g/dL (6.0-8.3); Sodium 138 mmol/L (136-145)
[2017-11-01 13:11] LABS: CKMB 1.1 ng/mL (0-6.6); Troponin I Less than 0.010 ng/mL (< 0.028)
--- NOTE | 2017-11-01 13:19 | RAD ---
PORTABLE CHEST: Date: 11-01-17 Provided Clinical History: Altered mental status. Comparison: 07-24-17 FINDINGS: Evaluation is limited by patient body habitus. The cardiac silhouette appears stable and enlarged. Va scular calcification is noted involving the aortic arch. The left lung base is poorly evaluated. The lungs appear otherwise clear. No evidence for right sided pleural fluid. No evidence for pneumothorax . IMPRESSION: No evidence for an acute cardiopulmonary process with limitations as above. POS: [facility]
[2017-11-01 14:20] LABS: Bilirubin Negative (Negative); Blood, Urine Negative (Negative); Clarity Clear (Clear); Glucose, Urine (Dipstick) Negative (Negative); Leukocyte Negative (Negative); Nitrite Negative (Negative); Protein, Urine (Dipstick) Negative (Neg-Trace); Urobilinogen 0.2 mg/dL (0.2-1.0); pH, Urine 5.5 (5.0-9.0)
[2017-11-01 14:30] LABS: Specific Gravity, Urine 1.009 (1.002-1.036)
== END 2017-11-01 15:07 | disposition home or self-care (01) ==
LOC: ERS 12:01
DX: E11.649 Type 2 diabetes mellitus with hypoglycemia without coma (principal); G43.909 Migraine, unspecified, not intractable, without status migrainosus; E78.5 Hyperlipidemia, unspecified; I10 Essential (primary) hypertension; J44.9 Chronic obstructive pulmonary disease, unspecified; Z87.891 Personal history of nicotine dependence; Z86.73 Personal history of transient ischemic attack (TIA), and cerebral infarction without residual deficits
CPT/HCPCS: 36416; 71045; 80053; 81003; 82550; 82553; 83690; 84484; 85025; 93005

== ENCOUNTER 2017-11-08 10:00 | Inpatient (IN) | payer MEDICARE, MEDICAID ==
--- NOTE | 2017-11-08 10:32 | RAD ---
RIGHT HIP 2 VIEWS: Date: 11/08/17 HISTORY: Trip and fall. COMPARISON: CT dated 07/20/17. FINDINGS: There is an impacted right femoral neck fracture. There are surgical clips along the medial right thi gh. Obturator ring is intact. IMPRESSION: Impacted valgus angulated right femoral neck fracture. POS: [facility]
--- NOTE | 2017-11-08 10:55 | CT ---
CT BRAIN WITHOUT CONTRAST: History: Fall, head injury. Comparison: CT brain, 09-30-17. FINDINGS: No acute hemorrhage or infarct. No midline shift of mass effect. Chronic microangiopathic changes. Ol d lacunar infarcts. Calvarium is intact. Paranasal sinuses and mastoids are relatively clear. Soft tissues are unremarkable. IMPRESSION: 1. No acute intracranial abnormality. 2. Chronic microangiopathic changes. 3. No significant change. POS: [facility]
[2017-11-08 11:17] LABS: #Basophils 0.1 thou/uL (0.0-0.2); #Eosinphils 0.2 thou/uL (0.0-0.7); #Lymphocytes 1.7 thou/uL (1.20-3.40); #Monocytes 0.9 thou/uL (0.11-0.59); #Neutrophils 9.8 thou/uL (1.40-6.50); %Basophils 0.4 % (0.0-1.0); %Eosinophils 1.8 % (0.0-10.0); %Lymphocytes 13.4 % (21.0-51.0); %Monocytes 6.8 % (0.0-10.0); %Neutrophils 77.6 % (42.0-75.0); Hemoglobin 11.7 g/dL (12.0-16.0); Mean Corpuscular HGB CONC 31.6 g/dL (32.0-36.0); Mean Corpuscular Hemoglobin 29.8 pg (27.0-31.0); Mean Corpuscular Volume 94.3 fl (81.0-99.0); Mean Platelet Volume 8.4 fL (7.4-10.4); Platelet Count 308 thou/uL (130-400); RBC Distribution Width 13.3 % (11.5-14.5); Red Blood Cell (RBC) Count 3.92 mill/uL (4.20-5.40); White Blood Cell (WBC) Count 12.6 thou/uL (4.8-10.8)
--- NOTE | 2017-11-08 11:23 | RAD ---
PORTABLE SUPINE CHEST: Date: 11/08/17 HISTORY: Preoperative evaluation. COMPARISON: 11/01/17. FINDINGS: Lungs appear clear. No infiltrate identified. Heart size upper normal and stable. Vascular markings u pper normal and stable. IMPRESSION: No acute abnormality identified. POS: [facility]
[2017-11-08 11:35] LABS: Anion Gap 15 mmol/L (10-20); BUN (Urea Nitrogen) 25 mg/dL (9.8-20.1); Calc. Creatinine Clearance 0 mL/min (70-130); Calcium 9.6 mg/dL (7.8-10.44); Carbon Dioxide 29 mmol/L (23-31); Chloride 104 mmol/L (98-107); Estimated GFR-MDRD 40; Glucose 153 mg/dL (80-115); Sodium 143 mmol/L (136-145)
[2017-11-08] MEDS ORDERED: Fentanyl 100 MCG/2 ML VIAL ONE (12:11)
[2017-11-08] MEDS ORDERED: Dextrose 50% Abboject 50 ML SYRINGE SLOW IVP PRN (14:40)
[2017-11-08] MEDS ORDERED: Dextrose 5% in Water 1,000 ML IV PRN (14:40)
[2017-11-08] MEDS ORDERED: Ondansetron ODT 4 MG TAB PO PRN (14:40)
[2017-11-08] MEDS ORDERED: hydrALAZINE 20 MG/ML VIAL SLOW IVP PRN (14:40)
[2017-11-08] MEDS ORDERED: HYDROcodone/Acetaminophen 10/325 mg Tablet PO PRN (14:40)
[2017-11-08] MEDS ORDERED: Ondansetron HCl/PF 4 MG/2 ML Vial IVP PRN (14:40)
[2017-11-08] MEDS: Morphine 4 MG/ML Carpuject IVP PRN ×2 (15:08→18:18)
[2017-11-08] MEDS: Sodium Chloride 0.9% 1,000 ML IV SCH (15:09)
[2017-11-08 15:42] VITALS: BMI 32.5
--- NOTE | 2017-11-08 15:58 | HP ---
DATE OF SERVICE: 11/08/2017 ATTENDING PHYSICIAN: Dr. Félix Howard. CONSULTING PHYSICIAN: Dr. Olman Field. CHIEF COMPLAINT: Evaluation of status post ground level fall on the right hip. HISTORY OF PRESENT ILLNESS: Mrs. Shay is a 72-year-old female with a history of falling, who was brought to the ED from [facility] by ambulance for evaluation of right hip pain after suffering a ground level fall. She reports that she got tangled up in some bedding that was lying on the floor and fell, landing on her right hip and elbow. She also reports hitting the back of her head. She denies loss of consciousness. She denies vision changes, dizziness or lightheadedness, nausea, vomiting or diarrhea. She does endorse a headache posteriorly. She reports that her hip pain was initially 10/10, but it is now 6 /10 after receiving fentanyl in the ER. Her pain is constant, but worse with movement. She is unable to bear weight. REVIEW OF SYSTEMS: Negative except as mentioned in the HPI. PAST MEDICAL HISTORY: Significant for history of falls. She also has a history of migraines, type 2 diabetes, hypertension, and hyperlipidemia. The emergency room notes report a history of COPD, although she is unsure if she has this. SOCIAL HISTORY: She denies smoking, although she reports being a former smoker. She denies alcohol use. She denies other drug use. PAST SURGICAL HISTORY: She reports a history of hysterectomy, a partial splenectomy, tonsillectomy as well as right rotator cuff surgery. FAMILY HISTORY: Noncontributory. PSYCHIATRIC HISTORY: She denies psychiatric history, although she does admit to sometimes suffering from insomnia. ALLERGIES: She reports an allergy to DEMEROL. She also reports an allergy to IMITREX. PHYSICAL EXAMINATION: VITAL SIGNS: Upon admission to the ER, her vital signs were as follows, BP 185/ 121, pulse 96, respirations 17, temperature 97.7, O2 sat 93% on room air. Pain 10/10. After administration of fentanyl, vital signs were repeated as follows, BP 147/112, pulse 101, respirations 17, temperature 98, O2 sat 95% on 2 liters nasal cannula. Pain 4/10. GENERAL: Elderly obese female lying comfortably in bed. Nasal cannula in place. No acute distress. HEENT: Head normocephalic, mild right occipital swelling. No lacerations or ecchymosis. Eyes: Pupils are equal, round, and reactive to light. Her extraocular movements are intact. Ears: The external auditory canals are free of blood or fluid. There is no ecchymosis. Nose: Nares are clear of blood and appear patent. Nasal cannula is in place. Mouth: Oropharynx is clear, but dry. NECK: There is no appreciable tracheal deviation. RESPIRATORY: Distant breath sounds. No wheezes, rales or rhonchi appreciated. CARDIOVASCULAR: Regular rate and rhythm. No murmurs, gallops or rubs. No appreciable JVD. Dorsalis pedis pulses 2+ bilaterally. Cap refill less than 2 seconds in all extremities. ABDOMEN: Her abdomen was obese, but not grossly distended. She has a well healed vertical incision scar along the midline. She is free of ecchymosis. Her bowel sounds are normal. She does have tenderness to palpation in the right upper quadrant at the costal margin, but no tenderness to palpation anywhere else. There were no masses or organomegaly appreciated. MUSCULOSKELETAL: She moves fingers and toes easily. [employer] strength is 5/5. Right toe strength is 5/5. She does have pain with palpation over the right greater trochanter. She has no ecchymosis. NEUROLOGIC: She is alert and oriented x4. She has no focal neurologic findings. Cranial nerves II-XII are intact. SKIN: Warm and dry, and normal in color. No cyanosis. EXTREMITIES: Cap refill less than 2 seconds in all extremities. RADIOLOGIC FINDINGS: X-ray of her hip reveals an impacted right femoral neck fracture. Her chest x-ray reveals no acute abnormality. Her head CT shows no acute intracranial abnormality. ASSESSMENT AND PLAN: 1. Status post ground level fall. 2. Right femoral neck fracture. The plan will be to admit the patient to the surgical floor. Surgical consultation has been placed with Orthopedics. She is currently n.p.o. since yesterday evening, so surgery can proceed today. We will keep her n.p.o. If surgery cannot be scheduled today, we will make her n.p.o. after midnight. We will provide adequate pain control in the meantime. The patient has been seen along with Dr. Howard who agrees with this assessment and plan. [facility]
[2017-11-08] MEDS ORDERED: CEFAZOLIN/Water 2 GM/20 ML SYRINGE SLOW IVP SCH (16:45)
--- NOTE | 2017-11-08 17:19 | CON ---
DATE OF CONSULTATION: 11/08/2017 HISTORY OF PRESENT ILLNESS: We were asked by Trauma in the ER to see patient for a right hip fractur e. The patient was in her normal state of health. She resides at [facility], independent living. Wh en she got caught up in some bedding that was on for floor, fell, striking her right hip and head. T he hip is sore with movement and some palpation, but she is able to move her leg on her own fairly we ll. She also has some peripheral neuropathies, so she states she uses a walker since she is not able to feel her feet all that great and she is off balance when she walks. She denies any loss of consc iousness with her fall. Her pain is okay right now, but with any movement that ramps up to 8, 9, 10/ 10 depending on what is being done to her. She was recently given some pain medication, so she is ab le to move a little bit easier. PAST MEDICAL HISTORY: Positive for migraines, diabetes, hypertension, hyperlipidemia, multiple falls , and COPD. SOCIAL HISTORY: Nonsmoker, quit years ago. No alcohol or nicotine use. Resides at [facility]. SURGERIES: Hysterectomy, splenectomy, tonsillectomy, right rotator cuff. ALLERGIES: DEMEROL and IMITREX. CURRENT MEDICATIONS: Amitriptyline, aspirin, atorvastatin, carvedilol, Celexa, ferrous sulfate, fluc onazole, appropriate Lasix, glipizide, ipratropium, lisinopril, Protonix, potassium chloride, pregaba owen, sitagliptin, phosphate/metformin HCI. REVIEW OF SYSTEMS: Patient has history of falls, unsteadiness with her gait, but denies any chest pa in, shortness of breath currently. No GI, issues currently. Her hip does hurt and she does have multiple areas of bruises, scabs in various degrees of healing on her lower extremities from bumping into things. PHYSICAL EXAMINATION: GENERAL: Well-nourished, well-developed female, very pleasant, in no acute distress. Speech clear. Affect pleasant. Answers questions appropriately, she is alert and oriented x3. HEENT: Normal. EXTREMITIES: Normal Exam. Upper extremities: Normal size, shape, symmetry, bulk and tone, moving b oth well. Sensation intact. Lower extremities: Moving the right lower extremity causes her a good deal of pain, especially with internal external rotation of the hip. She does have some palpable ten derness over that lateral and anterior hip and to the groin. She is able to move both lower extremit ies from the knee down and has good DP and PT pulses bilaterally. She is able to feel sensations to her feet, but she states it feels tight, but she can feel me touching her feet and she has good propr ioception. ASSESSMENT: 1. Multiple health issues. 2. Falls. 3. Right hip fracture. PLAN: X-rays of the hip fractures in really good alignment. I spoke with patient and informed her a nd showed her the pictures of her hip, talked about options for her surgical status with a good align ment. We might be able to do percutaneous screws which I explained the procedure to the patient or h emiarthroplasty. Patient is amenable for either procedures and has given verbal authorization to go forth with surgery. We will plan on doing that tomorrow. I will put orders in the computer. We duane l let her eat this evening, keep her n.p.o. after midnight treat her pain appropriately. We will rev iew imaging studies with Dr. Shafer and come up with a definitive surgical plan. I have explained this to patient also. I will discuss this either with her this evening or first thing in the morning . This is Cristóbal Bland PA-C dictating for Olman Field M.D.
[2017-11-08] MEDS ORDERED: Mometasone 100 MCG HFA INHALER INH SCH (19:00)
[2017-11-08] MEDS: Ipratropium Oral Inhaler (200 INHALATIONS) INH SCH (19:31)
[2017-11-08] MEDS ORDERED: Famotidine 20 MG TAB PO SCH (21:00)
[2017-11-08] MEDS: Pregabalin 75 MG CAP PO SCH (21:03)
[2017-11-08] MEDS: Senokot S 8.6-50 MG TAB PO SCH (21:04)
[2017-11-08] MEDS: Amitriptyline HCl 100 MG TAB PO SCH (21:04)
[2017-11-08] MEDS: Citalopram 20 MG TAB PO SCH (21:04)
[2017-11-08] MEDS: Famotidine 20 MG TAB PO SCH (21:05)
[2017-11-08] MEDS: Carvedilol 6.25 MG TAB PO SCH (21:05)
[2017-11-08] MEDS: HYDROcodone/Acetaminophen 10/325 mg Tablet PO PRN (21:10)
--- NOTE | 2017-11-08 21:46 | PRG ---
DATE OF SERVICE: 11/08/2017 SUBJECTIVE: Amber Shay is a 72-year-old female status post fall. She was found to have a right hi p fracture. Patient was admitted by our service earlier in the day. Orthopedic surgery plans for op erative intervention to her injury tomorrow. Upon my evaluation, the patient vocalized no complaint. Pain is controlled. She will be n.p.o. after midnight in preparation for her surgery. OBJECTIVE: VITAL SIGNS: Reviewed and stable. Tachycardia has improved with pain management. GENERAL: Patient is resting in bed in no acute distress. Breathing is nonlabored. ASSESSMENT AND PLAN: As documented in history and physical. Continue care as ordered. Continue to monitor.
[2017-11-09 05:23] LABS: #Basophils 0.1 thou/uL (0.0-0.2); #Eosinphils 0.5 thou/uL (0.0-0.7); #Monocytes 1.2 thou/uL (0.11-0.59); #Neutrophils 10.4 thou/uL (1.40-6.50); %Basophils 0.5 % (0.0-1.0); %Eosinophils 3.9 % (0.0-10.0); %Lymphocytes 13.7 % (21.0-51.0); %Monocytes 8.5 % (0.0-10.0); %Neutrophils 73.4 % (42.0-75.0); Hemoglobin 10.5 g/dL (12.0-16.0); Mean Corpuscular HGB CONC 31.4 g/dL (32.0-36.0); Mean Corpuscular Hemoglobin 29.8 pg (27.0-31.0); Mean Corpuscular Volume 94.8 fl (81.0-99.0); Mean Platelet Volume 8.8 fL (7.4-10.4); Platelet Count 264 thou/uL (130-400); RBC Distribution Width 13.3 % (11.5-14.5); Red Blood Cell (RBC) Count 3.51 mill/uL (4.20-5.40); White Blood Cell (WBC) Count 14.2 thou/uL (4.8-10.8)
[2017-11-09 05:45] LABS: Anion Gap 12 mmol/L (10-20); BUN (Urea Nitrogen) 18 mg/dL (9.8-20.1); Calc. Creatinine Clearance 61 mL/min (70-130); Carbon Dioxide 29 mmol/L (23-31); Chloride 105 mmol/L (98-107); Estimated GFR-MDRD 44; Glucose 160 mg/dL (80-115); Magnesium 1.8 mg/dL (1.6-2.6); Phosphorus 3.2 mg/dL (2.3-4.7); Potassium 4.5 mmol/L (3.5-5.1); Sodium 141 mmol/L (136-145)
[2017-11-09] MEDS: HYDROcodone/Acetaminophen 10/325 mg Tablet PO PRN (06:21)
[2017-11-09] MEDS: Sodium Chloride 0.9% 1,000 ML IV SCH (06:23)
[2017-11-09] MEDS: Carvedilol 6.25 MG TAB PO SCH ×2 (06:23→20:09)
[2017-11-09] MEDS ORDERED: Magnesium Sulfate 2 GM in Sodium Chloride 0.9% 100 ML IVPB SCH (06:30)
[2017-11-09] MEDS: Morphine 4 MG/ML Carpuject IVP PRN (06:36)
[2017-11-09] MEDS ORDERED: Magnesium 2 GM/NS 0.9% 100 ML 2 GM in Premix Bag 1 BAG IVPB SCH (06:45)
[2017-11-09] MEDS: Ipratropium Oral Inhaler (200 INHALATIONS) INH SCH ×4 (07:01→19:29)
[2017-11-09] MEDS: Mometasone 100 MCG HFA INHALER INH SCH ×2 (07:04→19:31)
[2017-11-09] MEDS ORDERED: CEFAZOLIN/Water 2 GM/20 ML SYRINGE ONE (08:17)
[2017-11-09] MEDS: Polyethylene Glycol 3350 17 GM Packet PO SCH (08:41)
[2017-11-09] MEDS: Furosemide 40 MG TAB PO SCH (08:41)
[2017-11-09] MEDS: Lisinopril 2.5 MG TAB PO SCH (08:41)
[2017-11-09] MEDS: Senokot S 8.6-50 MG TAB PO SCH ×2 (08:42→20:08)
[2017-11-09] MEDS: Pregabalin 75 MG CAP PO SCH ×3 (08:42→20:08)
[2017-11-09] MEDS ORDERED: Fentanyl 100 MCG/2 ML VIAL ONE ×2 (09:06→10:59)
[2017-11-09] MEDS ORDERED: Promethazine HCl 25 MG/ML VIAL IM PRN (10:28)
[2017-11-09] MEDS ORDERED: Ondansetron HCl/PF 4 MG/2 ML Vial IVP PRN (10:28)
[2017-11-09] MEDS ORDERED: Promethazine HCl 25 MG/ML VIAL SLOW IVP PRN (10:28)
--- NOTE | 2017-11-09 10:29 | OP ---
DATE OF PROCEDURE: 11/09/2017 OPERATION: Percutaneous screw fixation of right femoral neck fracture. PREOPERATIVE DIAGNOSIS: Right femoral neck fracture. POSTOPERATIVE DIAGNOSIS: Right femoral neck fracture. COMPLICATIONS: None. ESTIMATED BLOOD LOSS: Minimal. SURGEON: Olman Field M.D. ANESTHESIA: General. IMPLANTS: Three 7.3 mm Synthes cannulated screws were used. INDICATIONS: Ms. Shay is a 72-year-old female who fell. She sustained a fracture of the right fem oral neck. This was a valgus impacted. She was indicated for percutaneous screw fixation to stabili ze the fracture and allow early mobilization. Risks have been reviewed in detail. She has elected t o proceed with the operation. DESCRIPTION OF PROCEDURE: Ms. Shay was identified in the preoperative holding area. Her correct e xtremity was marked. She was carried to the operating room. She was positioned supine. General ane sthesia was induced. A multidisciplinary timeout was performed. The right lower extremity was prepp ed and draped in sterile fashion. We began the procedure with evaluation under intraoperative x-ray. We pulled gentle traction on the leg. We then made an incision laterally. Next, we placed 3 guidewires into the femoral head in an i nverted triangle pattern. X-ray was used to guide these. We overdrilled the guidewires and measured our length. We then inserted three 7.3 mm cannulated screws. Again, we checked x-rays confirming p osition. We removed the guidewires irrigated the wound and closed with kayleen. A sterile dressing was applied. The patient was taken to the recovery room at this point in good condition without comp lication.
--- NOTE | 2017-11-09 11:11 | RAD ---
TWO VIEWS RIGHT HIP: Comparison: 11-08-17 History: Right proximal femur fracture status post percutaneous pinning. FINDINGS/IMPRESSION: Multiple limited intraoperative fluoroscopic views of the right hip were submitted for interpretation . The patient has three screws placed in the femoral neck spanning the femoral neck fracture. No per hardware lucency is identified. POS: [facility]
[2017-11-09] MEDS: Morphine 2 MG/ML SYRINGE SLOW IVP PRN ×2 (12:30→18:29)
[2017-11-09] MEDS ORDERED: Propofol 200 MG/20 ML VIAL ONE (13:18)
[2017-11-09] MEDS ORDERED: PHENYLEPHRINE-NS 100 MCG/ML 10 ML SYRINGE ONE (13:18)
[2017-11-09] MEDS ORDERED: Lidocaine 1% PF 5 ML VIAL ONE (13:18)
[2017-11-09] MEDS: CEFAZOLIN/Water 2 GM/20 ML SYRINGE SLOW IVP SCH (16:48)
[2017-11-09] MEDS: Insulin Regular 300 UNITS/3 ML VIAL SC PRN ×2 (18:34→20:09)
--- NOTE | 2017-11-09 18:56 | PRG ---
DATE OF SERVICE: 11/09/2017 ATTENDING PHYSICIAN: Dr. Félix Howard. CHIEF COMPLAINT: Right hip fracture. SUBJECTIVE: Ms. Shay is a 72-year-old female with a history of falling, who was brought to the ED yesterday from [facility] for evaluation of right hip pain secondary to falling. She was discov ered to have a right hip fracture and is scheduled to go to surgery today. She was mildly tachycardi c overnight to 108, but has been stable this morning and voices no complaints. OBJECTIVE: VITAL SIGNS: Blood pressure 121/74, pulse 91, temperature 97.7, respirations 14, O2 sats 94% on 2 li ters nasal cannula. GENERAL: Elderly obese female, lying comfortably in bed. Nasal cannula in place. No acute distress . HEENT: Head normocephalic, mild right occipital swelling. RESPIRATORY: Distant breath sounds, but no wheezes, rales or rhonchi appreciated. CARDIOVASCULAR: Regular rate and rhythm. No murmurs, gallops or rubs. No appreciable JVD. ABDOMEN: Obese, but soft and nondistended. Bowel sounds normal. 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 Moves fingers and toes easily. Distal pulses 2+ bilaterally. NEUROLOGIC: Alert and oriented x3. No focal neurologic findings. SKIN: Warm and dry, normal in color. No cyanosis. ASSESSMENT: 1. Status post ground level fall. 2. Right femoral neck fracture. 3. Hypertension. 4. Hyperlipidemia. 5. Diabetes, type 2. PLAN: The plan will be for surgery today. We will keep her n.p.o. and optimize her pain in the mean time. This patient was seen and examined along with Dr. Howard who agrees with this assessment and plan.
[2017-11-09] MEDS: Citalopram 20 MG TAB PO SCH (20:08)
[2017-11-09] MEDS: Amitriptyline HCl 100 MG TAB PO SCH (20:08)
[2017-11-09] MEDS: Famotidine 20 MG TAB PO SCH (20:08)
[2017-11-09] MEDS ORDERED: traMADol HCl 50 MG TAB PO PRN (20:28)
--- NOTE | 2017-11-09 21:11 | PRG ---
DATE OF SERVICE: 11/09/2017 SUBJECTIVE: This is a 72-year-old female status post fall. She is postop day 0 status post hip frac ture repair. Upon my evaluation, the patient vocalized no complaint. She states her pain is control led. OBJECTIVE: VITAL SIGNS: Reviewed and stable. GENERAL: The patient is resting in bed in no acute distress. She is still mildly drowsy from anesth esia. Breathing is not labored. ASSESSMENT AND PLAN: As documented in daily progress note. Continue care as ordered. Continue to m onitor.
[2017-11-10] MEDS: CEFAZOLIN/Water 2 GM/20 ML SYRINGE SLOW IVP SCH (00:15)
[2017-11-10] MEDS: Sodium Chloride 0.9% 1,000 ML IV SCH (00:15)
[2017-11-10] MEDS: Acetaminophen 500 MG TAB PO SCH ×5 (00:16→17:13)
[2017-11-10] MEDS: traMADol HCl 50 MG TAB PO PRN ×2 (03:52→10:09)
[2017-11-10 05:06] LABS: #Basophils 0.1 thou/uL (0.0-0.2); #Eosinphils 0.4 thou/uL (0.0-0.7); #Lymphocytes 2.1 thou/uL (1.20-3.40); #Monocytes 1.5 thou/uL (0.11-0.59); #Neutrophils 8.8 thou/uL (1.40-6.50); %Basophils 0.4 % (0.0-1.0); %Eosinophils 2.8 % (0.0-10.0); %Lymphocytes 16.5 % (21.0-51.0); %Monocytes 11.5 % (0.0-10.0); %Neutrophils 68.7 % (42.0-75.0); Hemoglobin 8.9 g/dL (12.0-16.0); Mean Corpuscular Hemoglobin 29.2 pg (27.0-31.0); Mean Corpuscular Volume 94.3 fl (81.0-99.0); Mean Platelet Volume 8.5 fL (7.4-10.4); Platelet Count 215 thou/uL (130-400); Red Blood Cell (RBC) Count 3.04 mill/uL (4.20-5.40); White Blood Cell (WBC) Count 12.8 thou/uL (4.8-10.8)
[2017-11-10 05:25] LABS: Anion Gap 12 mmol/L (10-20); BUN (Urea Nitrogen) 12 mg/dL (9.8-20.1); Calc. Creatinine Clearance 79 mL/min (70-130); Calcium 8.4 mg/dL (7.8-10.44); Carbon Dioxide 26 mmol/L (23-31); Chloride 106 mmol/L (98-107); Estimated GFR-MDRD 60; Glucose 140 mg/dL (80-115); Magnesium 2.2 mg/dL (1.6-2.6); Phosphorus 2.8 mg/dL (2.3-4.7); Potassium 4.8 mmol/L (3.5-5.1); Sodium 139 mmol/L (136-145)
[2017-11-10] MEDS: Mometasone 100 MCG HFA INHALER INH SCH ×2 (07:38→20:22)
[2017-11-10] MEDS: Ipratropium Oral Inhaler (200 INHALATIONS) INH SCH ×4 (07:39→20:22)
[2017-11-10] MEDS: Senokot S 8.6-50 MG TAB PO SCH ×2 (09:03→20:59)
[2017-11-10] MEDS: Lisinopril 2.5 MG TAB PO SCH (09:03)
[2017-11-10] MEDS: Furosemide 40 MG TAB PO SCH (09:03)
[2017-11-10] MEDS: Enoxaparin Sodium 40 MG/0.4 ML SYRINGE SC SCH (09:04)
[2017-11-10] MEDS: Carvedilol 6.25 MG TAB PO SCH ×2 (09:04→20:59)
[2017-11-10] MEDS: Polyethylene Glycol 3350 17 GM Packet PO SCH (09:04)
[2017-11-10] MEDS: Pregabalin 75 MG CAP PO SCH ×3 (09:04→20:59)
[2017-11-10] MEDS: Insulin Regular 300 UNITS/3 ML VIAL SC PRN ×2 (14:33→17:17)
--- NOTE | 2017-11-10 16:07 | PRG ---
DATE OF SERVICE: 11/10/2017 ATTENDING PHYSICIAN: Félix Howard DO CHIEF COMPLAINT: Right hip fracture. SUBJECTIVE: Ms. Shay is a 72-year-old female with history of following and was brought to the ED from [facility] for evaluation of right hip pain after falling. She was discovered to have a right hip fracture and was taken to the OR yesterday. She is now postop day #1. Her pain is well controlled this morning and she has no complaints. OBJECTIVE: VITAL SIGNS: BP 125/74, pulse 93, temperature 98.6, respirations 19, O2 sat 94 % on 3 liters nasal cannula. GENERAL: An elderly obese female, lying in bed. No nasal cannula in place. No acute distress. HEENT: Head normocephalic. Mild right occipital swelling. RESPIRATORY: Lungs clear to auscultation bilaterally. CARDIOVASCULAR: Regular rate and rhythm. No murmurs, gallops, or rubs. ABDOMEN: Obese, but soft and nondistended. Bowel sounds are normal. MUSCULOSKELETAL: Moves all extremities. NEUROLOGIC: Alert and oriented x3. No focal neurologic findings. GCS 15. SKIN: Warm and dry, normal in color. No cyanosis. ASSESSMENT: 1. Status post ground level fall. 2. Right femoral neck fracture status post percutaneous screw fixation. 3. Hypertension. 4. Hyperlipidemia. 5. Type 2 diabetes. PLAN: Continue supportive care and working with PT/OT. She will likely be discharged tomorrow or Sunday back to [facility] for fpc. This patient was discussed with Dr. Félix Howard who agrees with his assessment and plan. [facility]
[2017-11-10] MEDS: Famotidine 20 MG TAB PO SCH (20:57)
[2017-11-10] MEDS: Amitriptyline HCl 100 MG TAB PO SCH (20:59)
[2017-11-10] MEDS: Citalopram 20 MG TAB PO SCH (20:59)
[2017-11-10] MEDS ORDERED: Albumin 25% 25 GM/100 ML BOT IVPB SCH (21:14)
[2017-11-10] MEDS ORDERED: Hydrocortisone Sod Succ/PF 100 mg/2 ml Vial IVP SCH ×2 (21:30→21:45)
--- NOTE | 2017-11-10 21:30 | PRG ---
DATE OF SERVICE: 11/10/2017 SUBJECTIVE: This is a 72-year-old female, status post fall, postop day #1, status post hip fracture repair. The patient has been doing well throughout the day; however, she has been noted to be somewh at hypotensive this afternoon. The patient is currently resting in bed and vocalized no complaint up on my evaluation. OBJECTIVE: VITAL SIGNS: Reviewed, last recorded blood pressure 94/57 with a heart rate of 82. GENERAL: The patient is resting in bed, in no acute distress. RESPIRATORY: Breathing is nonlabored. NEUROLOGIC: No focal deficit is noted. ASSESSMENT AND PLAN: As documented in daily progress note with the addition of hypotension. As fede ent takes daily Lasix, positive with no overt signs of bleeding doubt this is hypovolemic in nature. We will obtain a stat cortisol level now with 100 of hydrocortisone. If patient's cortisol level is low, we will address. Otherwise, continue care as ordered. Continue to monitor. A.m. labs.
[2017-11-11] MEDS: Acetaminophen 500 MG TAB PO SCH ×2 (00:02→06:24)
[2017-11-11] MEDS: Hydrocortisone Sod Succ/PF 100 mg/2 ml Vial IVP SCH ×4 (03:36→21:42)
[2017-11-11 04:47] LABS: #Basophils 0.1 thou/uL (0.0-0.2); #Lymphocytes 1.1 thou/uL (1.20-3.40); #Monocytes 0.5 thou/uL (0.11-0.59); #Neutrophils 11.3 thou/uL (1.40-6.50); %Basophils 0.4 % (0.0-1.0); %Eosinophils 0.3 % (0.0-10.0); %Lymphocytes 8.4 % (21.0-51.0); %Monocytes 3.7 % (0.0-10.0); %Neutrophils 87.1 % (42.0-75.0); Hemoglobin 8.7 g/dL (12.0-16.0); Mean Corpuscular HGB CONC 31.2 g/dL (32.0-36.0); Mean Corpuscular Hemoglobin 29.5 pg (27.0-31.0); Mean Corpuscular Volume 94.6 fl (81.0-99.0); Mean Platelet Volume 8.7 fL (7.4-10.4); Platelet Count 222 thou/uL (130-400); RBC Distribution Width 13.1 % (11.5-14.5); Red Blood Cell (RBC) Count 2.95 mill/uL (4.20-5.40); White Blood Cell (WBC) Count 12.9 thou/uL (4.8-10.8)
[2017-11-11 05:05] LABS: Anion Gap 14 mmol/L (10-20); BUN (Urea Nitrogen) 18 mg/dL (9.8-20.1); Calc. Creatinine Clearance 68 mL/min (70-130); Carbon Dioxide 24 mmol/L (23-31); Chloride 106 mmol/L (98-107); Estimated GFR-MDRD 50; Glucose 168 mg/dL (80-115); Phosphorus 3.7 mg/dL (2.3-4.7); Potassium 4.7 mmol/L (3.5-5.1); Sodium 139 mmol/L (136-145)
[2017-11-11] MEDS: Insulin Regular 300 UNITS/3 ML VIAL SC PRN ×2 (06:28→13:01)
[2017-11-11] MEDS: Ipratropium Oral Inhaler (200 INHALATIONS) INH SCH ×4 (07:29→19:23)
[2017-11-11] MEDS: Mometasone 100 MCG HFA INHALER INH SCH ×2 (07:35→19:25)
[2017-11-11] MEDS: Lisinopril 2.5 MG TAB PO SCH (08:35)
[2017-11-11] MEDS: Pregabalin 75 MG CAP PO SCH ×3 (08:36→21:36)
[2017-11-11] MEDS: Furosemide 40 MG TAB PO SCH (08:37)
[2017-11-11] MEDS: Senokot S 8.6-50 MG TAB PO SCH ×2 (08:37→21:38)
[2017-11-11] MEDS: Polyethylene Glycol 3350 17 GM Packet PO SCH (08:37)
[2017-11-11] MEDS: Enoxaparin Sodium 40 MG/0.4 ML SYRINGE SC SCH (08:37)
[2017-11-11] MEDS: Carvedilol 6.25 MG TAB PO SCH ×2 (08:37→21:43)
[2017-11-11] MEDS ORDERED: HYDROcodone/Acetaminophen 7.5/325 mg Tablet PO PRN ×2 (09:05)
[2017-11-11] MEDS ORDERED: Ketorolac Tromethamine 30 MG/ML VIAL IVP SCH (09:15)
--- NOTE | 2017-11-11 14:03 | PRG ---
DATE OF SERVICE: 11/11/2017 ATTENDING PHYSICIAN: Dr. Félix Howard. CHIEF COMPLAINT: Right hip fracture. SUBJECTIVE: Ms. Shay is a 72-year-old female with a history of falling, who was brought to the ED from [facility] for evaluation of right hip pain after falling. She was discovered to have a right hip fracture. She is now postop day #2. Her pain has been generally well controlled, although she complains about being unable to do physical therapy because of increased pain with movement. She had a few episodes of hypotension overnight. She had a serum cortisol drawn, which was low. She was started on IV hydrocortisone, after which her blood pressure rebounded. OBJECTIVE: VITAL SIGNS: BP 150/85, pulse 91, temperature 97.7, respirations 16, O2 sat is 96% on 3 liters. GENERAL: Elderly obese female sitting on the edge of the bed, working with physical therapy. RESPIRATORY: Lungs clear to auscultation bilaterally. CARDIOVASCULAR: Regular rate and rhythm. No murmurs, gallops or rubs. ABDOMEN: Obese, soft, nondistended. Bowel sounds normal. MUSCULOSKELETAL: She moves all extremities. NEUROLOGIC: She is alert and oriented x3 with no focal neurologic findings. GCS 15. SKIN: Warm, dry, normal in color. MUSCULOSKELETAL: No cyanosis. Cap refill less than 2 seconds. LABORATORY DATA: Serum cortisol 2.50, drawn at 1939 hours. ASSESSMENT: 1. Status post ground level fall. 2. Right femoral neck fracture, status post percutaneous screw fixation. 3. Hypertension. 4. Hyperlipidemia. 5. Type 2 diabetes. PLAN: Continue supportive care and optimize pain control. Continue working with PT and OT. We are currently awaiting placement with [facility] for halfway. This patient was discussed with Dr. Félix Howard, who agrees with this assessment and plan. [facility]
[2017-11-11] MEDS: traMADol HCl 50 MG TAB PO PRN (16:37)
--- NOTE | 2017-11-11 20:09 | PRG ---
DATE OF SERVICE: 11/11/2017 SUBJECTIVE: This is a 72-year-old female status post fall. She is postop day 2 hip fracture repair. She was hypotensive last night and started on IV steroids. Blood pressure has remained improved th roughout the day. At the time of evaluation, the patient vocalized no complaint. OBJECTIVE: VITAL SIGNS: Reviewed and stable. GENERAL: The patient is resting in bed, no acute distress. LUNGS: Breathing is nonlabored. ASSESSMENT AND PLAN: As documented in daily progress note. Continue care as ordered. Continue to m onitor. Await eventual disposition.
[2017-11-11] MEDS: Citalopram 20 MG TAB PO SCH (21:37)
[2017-11-11] MEDS: Ascorbic Acid 500 mg Chewable Tablet PO SCH (21:38)
[2017-11-11] MEDS: Famotidine 20 MG TAB PO SCH (21:38)
[2017-11-11] MEDS: Amitriptyline HCl 100 MG TAB PO SCH (21:38)
[2017-11-12] MEDS: Hydrocortisone Sod Succ/PF 100 mg/2 ml Vial IVP SCH ×4 (04:27→21:21)
[2017-11-12] MEDS: Ipratropium Oral Inhaler (200 INHALATIONS) INH SCH ×4 (07:58→20:20)
[2017-11-12] MEDS: Mometasone 100 MCG HFA INHALER INH SCH ×2 (08:00→20:18)
[2017-11-12] MEDS ORDERED: traMADol HCl 50 MG TAB PO PRN (08:27)
[2017-11-12] MEDS: traMADol HCl 50 MG TAB PO SCH ×3 (08:57→21:26)
[2017-11-12] MEDS: Acetaminophen 500 MG TAB PO SCH ×3 (08:57→21:25)
[2017-11-12] MEDS: Ibuprofen 600 MG TAB PO SCH ×3 (08:57→23:03)
[2017-11-12] MEDS: Ferrous Sulfate 325 MG TAB PO SCH ×2 (08:58→16:25)
[2017-11-12] MEDS: Ascorbic Acid 500 mg Chewable Tablet PO SCH ×2 (08:58→21:25)
[2017-11-12] MEDS: Lisinopril 2.5 MG TAB PO SCH (08:58)
[2017-11-12] MEDS: Pregabalin 75 MG CAP PO SCH ×3 (08:58→21:24)
[2017-11-12] MEDS: Carvedilol 6.25 MG TAB PO SCH ×2 (08:58→21:24)
[2017-11-12] MEDS: Furosemide 40 MG TAB PO SCH (08:59)
[2017-11-12] MEDS: Senokot S 8.6-50 MG TAB PO SCH ×2 (08:59→21:25)
[2017-11-12] MEDS: Polyethylene Glycol 3350 17 GM Packet PO SCH (08:59)
[2017-11-12] MEDS: Enoxaparin Sodium 40 MG/0.4 ML SYRINGE SC SCH (08:59)
[2017-11-12] MEDS ORDERED: traMADol HCl 50 MG TAB PO SCH (12:00)
[2017-11-12] MEDS: Insulin Regular 300 UNITS/3 ML VIAL SC PRN ×3 (12:39→23:00)
[2017-11-12] MEDS ORDERED: Bisacodyl 10 MG SUPP PR SCH (16:00)
--- NOTE | 2017-11-12 16:11 | PRG ---
DATE OF SERVICE: 11/12/2017 ATTENDING PHYSICIAN: Félix Howard D.O. CHIEF COMPLAINT: Right hip fracture. SUBJECTIVE: Ms. Shay is a 72-year-old female with a history of falls who was brought to the ED from [facility] for evaluation of right hip pain after falling. She was discovered to have a right hip fracture. She is now postop day #3. She reports that her pain is very well controlled this morning. However, she is having some difficulty with urinary retention. She was scanned this morning with over 900 mL of retained urine. OBJECTIVE: VITAL SIGNS: Blood pressure 130/69, temperature 97.2, pulse 88, respirations 16 , O2 sats 97% on 2 liters nasal cannula. GENERAL: Elderly obese female, alert and sitting on the edge of her chair. LUNGS: Clear to auscultation bilaterally. CARDIOVASCULAR: Regular rate and rhythm. No murmurs, gallops or rubs. ABDOMEN: Obese, soft, nondistended. Bowel sounds normal. MUSCULOSKELETAL: She is neurovascularly intact x4. NEUROLOGIC: She is alert and oriented x3 with no focal neurologic findings. [place] coma score is 15. SKIN: Warm, dry, and normal in color. LABORATORY DATA: Glucose 279. ASSESSMENT: 1. Status post ground level fall. 2. Right femoral neck fracture, status post percutaneous screw fixation. 3. Hypertension. 4. Hyperlipidemia. 5. Type 2 diabetes. 6. Urinary retention. PLAN: We will add Urecholine to her medications to help with urinary retention. Currently, awaiting insurance approval for transfer to [place] for [facility]. Anticipated date of discharge, 11/13/2017. This patient was seen and examined along with Dr. Félix Howard, who agrees with this assessment and plan. [facility]
[2017-11-12] MEDS: Amitriptyline HCl 100 MG TAB PO SCH (21:26)
[2017-11-12] MEDS: Citalopram 20 MG TAB PO SCH (21:27)
[2017-11-12] MEDS: Famotidine 20 MG TAB PO SCH (21:28)
--- NOTE | 2017-11-12 22:34 | PRG ---
DATE OF SERVICE: 11/12/2017 SUBJECTIVE: This is a 72-year-old female status post ground level fall and hip fracture. She is pos t op day 3, hip fracture repair. Patient had urinary retention early today. She was started on Urec holine. She does have some concerns this evening over her medication management specifically her ant ihypertensive and diabetes medications. OBJECTIVE: VITAL SIGNS: Reviewed. She is sitting in a chair out of bed. Vital signs otherwise stable. Breath ing is nonlabored. No focal deficits noted. ASSESSMENT AND PLAN: As documented in daily progress note. Continue care as ordered. Continue to m onitor. Wean steroids. Patient to resume home antihypertensive at this time. Await eventual dispos ition with possible discharge in the a.m.
[2017-11-13] MEDS: Acetaminophen 500 MG TAB PO SCH ×4 (02:57→20:06)
[2017-11-13] MEDS: traMADol HCl 50 MG TAB PO SCH ×4 (02:57→20:08)
[2017-11-13] MEDS: Ferrous Sulfate 325 MG TAB PO SCH ×2 (08:39→17:34)
[2017-11-13] MEDS: Ibuprofen 600 MG TAB PO SCH ×3 (08:39→23:52)
[2017-11-13] MEDS: Lisinopril 2.5 MG TAB PO SCH (08:40)
[2017-11-13] MEDS: Ascorbic Acid 500 mg Chewable Tablet PO SCH ×2 (08:40→20:06)
[2017-11-13] MEDS: Furosemide 40 MG TAB PO SCH (08:41)
[2017-11-13] MEDS: Carvedilol 6.25 MG TAB PO SCH ×2 (08:41→20:07)
[2017-11-13] MEDS: Polyethylene Glycol 3350 17 GM Packet PO SCH (08:42)
[2017-11-13] MEDS: Senokot S 8.6-50 MG TAB PO SCH ×2 (08:42→20:06)
[2017-11-13] MEDS: Enoxaparin Sodium 40 MG/0.4 ML SYRINGE SC SCH (08:42)
[2017-11-13] MEDS: Pregabalin 75 MG CAP PO SCH ×3 (08:53→20:06)
[2017-11-13] MEDS: Hydrocortisone Sod Succ/PF 100 mg/2 ml Vial IVP SCH (08:54)
[2017-11-13] MEDS: Ipratropium Oral Inhaler (200 INHALATIONS) INH SCH ×4 (08:55→19:39)
[2017-11-13] MEDS: Mometasone 100 MCG HFA INHALER INH SCH ×2 (08:56→19:39)
[2017-11-13] MEDS: Insulin Regular 300 UNITS/3 ML VIAL SC PRN ×2 (12:22→17:35)
--- NOTE | 2017-11-13 17:13 | PRG ---
DATE OF SERVICE: 11/13/2017 ATTENDING PHYSICIAN: Dr. Félix Howard. Opal Hong, nurse practitioner, dictating a daily progress note for Dr. Félix Howard. SUBJECTIVE: Ms. Shay is a 72-year-old female with history of multiple falls, who also had a recent fall and was diagnosed with a right hip fracture. She is now postoperative day 4 status post repair of the right hip fracture. Her pain is well controlled this morning. She was started on Urecholine yesterday to help with urinary retention. She reports she has not had to void yet this morning, but she does not feel like she has a full bladder. OBJECTIVE: VITAL SIGNS: Blood pressure 144/70, O2 sat 96, respirations 18, pulse 71, temperature 97.7. GENERAL: Elderly female, sitting up in chair, no acute distress. LUNGS: Respirations even and unlabored. No respiratory distress. CARDIOVASCULAR: Regular rate and rhythm. Heart sounds normal. ABDOMEN: Soft, nontender, nondistended. MUSCULOSKELETAL: Moves all extremities. Neurovascularly intact. Cap refill brisk. NEUROLOGIC: Awake, alert, oriented x3. GCS 15. SKIN: Warm, dry. No rashes or trauma noted. LABORATORY DATA: No current laboratory data for today except for blood glucose 144. ASSESSMENT: 1. Status post ground level fall. 2. Right femoral neck fracture. 3. Status post ORIF right femoral neck fracture. 4. Hypertension. 5. Hyperlipidemia. 6. Type 2 diabetes. 7. Urinary retention. PLAN: 1. Continue current care as ordered on floor. 2. Taper and discontinue hydrocortisone. 3. Voiding trial this morning with bladder scan for postvoid residual. 4. Continue PT and OT. 5. Anticipate patient will discharge to [facility] in a.m. The patient was seen and examined with Dr. Howard, attending trauma surgeon, who agrees with the asses sment and plan.
[2017-11-13] MEDS: Citalopram 20 MG TAB PO SCH (20:06)
[2017-11-13] MEDS: Famotidine 20 MG TAB PO SCH (20:07)
[2017-11-13] MEDS: Amitriptyline HCl 100 MG TAB PO SCH (20:12)
--- NOTE | 2017-11-13 23:34 | PRG ---
DATE OF SERVICE: 11/13/2017 SUBJECTIVE: This is a 72-year-old female status post ground level fall and hip fracture, postoperati ve day #4, hip fracture repair. The patient had urinary retention yesterday, started on Urecholine, today seems to be resolved. Blood pressure control was tapered today, hydrocortisone taper and disco ntinued hydrocortisone. OBJECTIVE: VITAL SIGNS: Reviewed, otherwise stable. GENERAL: No acute distress. The patient is resting comfortably. ASSESSMENT AND PLAN: As documented in daily progress. Continue care as ordered. Continue to monito r. Reassessment in the morning of blood pressure and eventual disposition to post care facility in a .m.
[2017-11-14] MEDS: traMADol HCl 50 MG TAB PO SCH ×2 (03:25→09:14)
[2017-11-14] MEDS: Acetaminophen 500 MG TAB PO SCH ×2 (03:25→09:12)
[2017-11-14] MEDS: Mometasone 100 MCG HFA INHALER INH SCH (07:53)
[2017-11-14] MEDS: Ipratropium Oral Inhaler (200 INHALATIONS) INH SCH (07:55)
[2017-11-14] MEDS: Ferrous Sulfate 325 MG TAB PO SCH (09:09)
[2017-11-14] MEDS: Ibuprofen 600 MG TAB PO SCH (09:10)
[2017-11-14] MEDS: Senokot S 8.6-50 MG TAB PO SCH (09:11)
[2017-11-14] MEDS: Lisinopril 2.5 MG TAB PO SCH (09:11)
[2017-11-14] MEDS: Furosemide 40 MG TAB PO SCH (09:11)
[2017-11-14] MEDS: Ascorbic Acid 500 mg Chewable Tablet PO SCH (09:11)
[2017-11-14] MEDS: Polyethylene Glycol 3350 17 GM Packet PO SCH (09:12)
[2017-11-14] MEDS: Pregabalin 75 MG CAP PO SCH (09:13)
[2017-11-14] MEDS: Enoxaparin Sodium 40 MG/0.4 ML SYRINGE SC SCH (09:16)
[2017-11-14] MEDS: Carvedilol 6.25 MG TAB PO SCH (09:16)
[2017-11-14] MEDS: Insulin Regular 300 UNITS/3 ML VIAL SC PRN (11:58)
[2017-11-14 12:34] VITALS: BP 130/54; TEMP 97.1
--- NOTE | 2017-11-14 20:10 | DIS ---
DATE OF ADMISSION: 11/08/2017 DATE OF DISCHARGE: 11/14/2017 ADMITTING PHYSICIAN: Dr. Félix Howard. CONSULTING PHYSICIAN: Dr. Olman Field. REASON FOR HOSPITALIZATION: Ground-level fall with right hip pain. HOSPITAL DIAGNOSIS: Right femoral neck fracture. PROCEDURES PERFORMED: Percutaneous screw fixation of right femoral neck fracture. Date of surgery, 11/09/2017. SURGEON: Dr. Olman Field. DISCHARGE CONDITION: Good. Discharged to [facility]. BRIEF HISTORY OF HOSPITALIZATION: Ms. Shay is a 72-year-old female who had a ground-level fall wit h subsequent right hip pain. She was transported to the emergency department where a right hip fract ure was identified. She was admitted to the hospital by Trauma Services. Dr. Olman Field, Orthopedics, was consulted and took the patient to the OR for fixation of hip fracture. She was the n managed on the surgical floor where she began mobilizing with physical and occupational therapy. S he had an episode of urinary retention and was started on Urecholine. Case management was consulted for discharge planning. She was accepted to [facility]. She was discharged on 11/14/2017. She is to follow up with Dr. Field in 2-3 weeks. She was discharged on aspirin 8 1 mg twice daily. She is also to resume her home medications. There is no need for her to follow up with Trauma Services. The patient was seen and examined with Dr. Howard, attending trauma surgeon, who agrees with the asses sment and discharge plan.
--- NOTE | 2017-11-17 21:38 | EKG ---
Test Reason : HIP INJURY Blood Pressure : / mmHG Vent. Rate : 102 BPM Atrial Rate : 102 BPM P-R Int : 202 ms QRS Dur : 098 ms QT Int : 348 ms P-R-T Axes : 104 007 076 degrees QTc Int : 453 ms Sinus tachycardia with 1st degree A-V block Septal infarct , age undetermined Abnormal ECG Confirmed by JOJO GERARD, CEDRICK ([id number]), sports editor BRANDON ACUNA ([id number]) on 11/17/2017 9:37:41 PM Referred By: Confirmed By:CEDRICK URIBE MD
== END 2017-11-14 12:38 | DRG 482 ==
LOC: ERS 10:00 → SURG A 12:35
PROVIDERS: ADMIT Surgery; ATTEND Surgery
PROC: 0QH634Z Insertion of Internal Fixation Device into Right Upper Femur, Percutaneous Approach (ICD-10-PCS; principal; 2017-11-09)
DX: S72.001A Fracture of unspecified part of neck of right femur, initial encounter for closed fracture (principal); I95.9 Hypotension, unspecified; E11.9 Type 2 diabetes mellitus without complications; W01.0XXA Fall on same level from slipping, tripping and stumbling without subsequent striking against object, initial encounter; Y92.013 Bedroom of single-family (private) house as the place of occurrence of the external cause; G43.909 Migraine, unspecified, not intractable, without status migrainosus; I10 Essential (primary) hypertension; E78.5 Hyperlipidemia, unspecified; Z87.891 Personal history of nicotine dependence; Z88.8 Allergy status to other drugs, medicaments and biological substances; R33.9 Retention of urine, unspecified; R00.0 Tachycardia, unspecified
CPT/HCPCS: 36415; 36416; 51702; 70450; 71045; 76001; 80048; 82533; 83735; 83880; 84100; 85025; 93005; 96374; C1713; C1769; G8978-GP-CL; G8979-GP-CJ; G8987-GO-CK; G8988-GO-CI; G8996-GN-CH; G8996-GN-CK; G8997-GN-CH; G8997-GN-CI; J1650; J1720; J1815; J1885; J2001; J2270; J2704; J3010; J3475; P9047

== ENCOUNTER 2017-11-23 12:02 | Emergency (ER) | payer MEDICARE, MEDICAID ==
[2017-11-23 13:46] LABS: Bilirubin Negative (Negative); Blood, Urine Negative (Negative); Clarity CLEAR (Clear); Glucose, Urine (Dipstick) Negative (Negative); Leukocyte Small (Negative); Nitrite Positive (Negative); Protein, Urine (Dipstick) Negative (Neg-Trace); Specific Gravity, Urine 1.013 (1.002-1.036); Urobilinogen 0.2 mg/dL (0.2-1.0); pH, Urine 5.5 (5.0-9.0)
[2017-11-23 13:47] LABS: Bacteria/HPF 1+ HPF (None Seen); Hyaline Casts/LPF 4-6 HYALINE CAST LPF (0-3 Hyaline); Pathc Cast-AUWi Flag 0.27 (0-2.49); RBC/HPF None Seen HPF (0-3); Squamous Epithelial 0-3 HPF (0-3)
[2017-11-23 14:03] LABS: ALT (SGPT) 12 U/L (8-55); AST (SGOT) 12 U/L (5-34); Albumin 3.8 g/dL (3.4-4.8); Alkaline Phosphatase 130 U/L (40-150); Anion Gap 16 mmol/L (10-20); BUN (Urea Nitrogen) 28 mg/dL (9.8-20.1); Bilirubin, Total 0.2 mg/dL (0.2-1.2); Calc. Creatinine Clearance 0 mL/min (70-130); Calcium 9.4 mg/dL (7.8-10.44); Carbon Dioxide 28 mmol/L (23-31); Chloride 104 mmol/L (98-107); Estimated GFR-MDRD 35; Globulin 3.3 g/dL (2.4-3.5); Glucose 60 mg/dL (80-115); Potassium 5.3 mmol/L (3.5-5.1); Protein, Total 7.1 g/dL (6.0-8.3); Sodium 143 mmol/L (136-145)
--- NOTE | 2017-11-23 14:06 | CT ---
TWO VIEWS CERVICAL SPINE WITHOUT CONTRAST: HISTORY: Pain. COMPARISON: CT cervical spine 09/27/17. FINDINGS: No acute fracture or malalignment. 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 Moderate degenerative disk space height loss at C4-5 and C5-6. Mild facet arthropathy. Lung apices are clear. Moderate atherosclerotic disease of the aorta. No adenopathy. IMPRESSION: No acute fracture or malalignment. POS: [facility]
--- NOTE | 2017-11-23 14:11 | CT ---
BRAIN CT WITHOUT IV CONTRAST: Date: 11/23/17 HISTORY: 72-year-old female with history of headache. COMPARISON: 11/08/17. FINDINGS: There is no focal mass or midline shift. 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 No mass or m idline shift. No intra or extra-axial hemorrhage. IMPRESSION: No acute intracranial process. Small punctate old lacunar infarct changes. No mass, bleed, or other a cute process. POS: [facility]
== END 2017-11-23 18:18 | disposition home or self-care (01) ==
LOC: ERS 12:02
DX: S09.90XA Unspecified injury of head, initial encounter (principal); S16.1XXA Strain of muscle, fascia and tendon at neck level, initial encounter; N30.00 Acute cystitis without hematuria; G43.909 Migraine, unspecified, not intractable, without status migrainosus; E11.9 Type 2 diabetes mellitus without complications; E78.5 Hyperlipidemia, unspecified; I10 Essential (primary) hypertension; J44.9 Chronic obstructive pulmonary disease, unspecified; Z87.891 Personal history of nicotine dependence; Z86.73 Personal history of transient ischemic attack (TIA), and cerebral infarction without residual deficits; Z79.899 Other long term (current) drug therapy; Z79.82 Long term (current) use of aspirin; W17.89XA Other fall from one level to another, initial encounter; Y92.091 Bathroom in other non-institutional residence as the place of occurrence of the external cause
CPT/HCPCS: 36415; 51701; 70450; 72125; 80053; 81003; 81015; 87077; 87086; 87186; 96361; 96374; A4353; J0696